=== PATIENT | male | born 1945 | race Caucasian/White ===

== ENCOUNTER 2018-06-14 11:57 | Inpatient (IN) ==
[2018-06-14] MEDS ORDERED: Bisacodyl 10 MG Supp RECTAL PRN (16:22)
--- NOTE | 2018-06-14 17:36 | P.HPVS ---
History of Present Illness Chief Complaint: TAAA History of Present Illness: 73 yo male with TAAA, adm for coumadin reversal (lupus anticoag) in anticipation of TAAA tomorrow (). No abdominal or back pain. TAAA 6 cm, up from 4.7 <1y ago. - Inpatient Certification If this patient has been admitted as an Inpatient: I certify that the inpatient services were ordered in accordance with Medicare regulations governing the order. This includes certification that hospital inpatient services are reasonable and necessary and in the case of services not specified as inpatient-only under 42 CFR 419.22(n), that they are appropriately provided as inpatient services in accordance to with the 2-midnight benchmark under 43 CFR 412.3(e) Estimated Total Length of Stay (Days): 8 Plans for Post Hospital Care: Home Review of Systems Constitutional: Denies chills, Denies fever(s) Cardiovascular: Denies chest pain Respiratory: Denies shortness of breath with activity PMFSH - History History Provided By: Patient, Family Member - Medical History Medical History: Medical History (Last Reviewed 06/14/18 @ 17:34 by Doroteo Goss MD) Dupuytren contracture History of left heart catheterization Lupus anticoagulant positive - Surgical History Surgical History: Surgical History (Last Reviewed 06/14/18 @ 17:34 by Doroteo Goss MD) Cataract extraction status of left eye H/O detached retina repair H/O vitrectomy History of right hip replacement S/P hernia surgery Stented coronary artery - Family History Family History: Family History (Last Updated 06/14/18 @ 17:34 by Doroteo Goss MD) Other AAA (abdominal aortic aneurysm) AAA (abdominal aortic aneurysm) without rupture AAA (abdominal aortic aneurysm, ruptured) - Tobacco History Second Hand Smoke Exposure: No Tobacco Use In Past 30 Days: No Smoking Status: Former smoker - Alcohol History How Often Do You Have a Drink Containing Alcohol: 4 or more times a week - Substance Use History Substance History: No History of Abuse - Immunization History Tetanus Immunization: Unsure Hx Influenza Vaccine This Season: Yes Medications and Allergies Active Medications: Active Medications Al Hydroxide/Mg Hydroxide (Milk Of Magnezequiel Liq) 30 ml PO Q12H PRN PRN Reason: Mild Constipation Bisacodyl (Dulcolax Supp) 10 mg RECTAL DAILY PRN PRN Reason: SEVERE CONSITIPATION Famotidine (Pepcid) 20 mg PO BID AYDE Lactulose (Lactulose Liq) 30 ml PO DAILY PRN PRN Reason: SEVERE CONSITIPATION Senna/Docusate Sodium (Virginie-Colace) 1 tab PO BID AYDE Sennosides (Senokot) 17.2 mg PO Q12H PRN PRN Reason: Moderate Constipation Allergies Allergy/AdvReac Type Severity Reaction Status Date / Time No Known Allergies Allergy Unverified 06/14/18 16:07 Home Medications Medication Instructions Recorded Confirmed Type alfuzosin 10 mg PO HS 06/14/18 06/14/18 History aspirin 81 mg PO DAILY 06/14/18 06/14/18 History atorvastatin [Lipitor] 40 mg PO DAILY 06/14/18 06/14/18 History brimonidine 1 drp OPHTHALMIC (EYE) BID 06/14/18 06/14/18 History cyanocobalamin-cobamamide [B12] 2,500 mcg SUBLINGUAL DAILY 06/14/18 06/14/18 History fluticasone [Flonase Allergy INTRANASAL PRN 06/14/18 History Relief] lisinopril 20 mg PO DAILY 06/14/18 06/14/18 History oxybutynin chloride 10 mg PO HS 06/14/18 06/14/18 History potassium citrate 540 mg PO BID 06/14/18 06/14/18 History warfarin 7.5 mg PO EVERY OTHER DAY 06/14/18 06/14/18 History warfarin See Label Instructions .ROUTE 06/14/18 06/14/18 History .COMPLEX Physical Exam Vital Signs / I&O: Vital Signs 06/14/18 16:16 Pulse Rate 75 Respiratory Rate 16 Blood Pressure 156/72 H Pulse Oximetry 97 Intake & Output 06/13/18 06/14/18 06/14/18 18:59 06:59 18:59 Weight 85.743 kg Other: Date of Last Bowel Movement 06/14/18 Weight On Admission 85.743 kg Neuro: alert, no distress, NAVA HEENT: NC; L eye ptosis Neck: no JVD Heart: reg rate Lungs: clear Abdomen: nontender Vascular: palpable femoral pulses pending CTA reviewed - 6m TAAA Caprini VTE Risk Assessment Caprini VTE Risk Assessment: No/Low Risk (score <= 1) Caprini Risk Assessment Model: Point Value = 1 Point Value = 2 Point Value = 3 Point Value = 5 Age 41-60 Minor surgery BMI > 25 kg/m2 Swollen legs Varicose veins or History of unexplained or recurrent spontaneous Oral contraceptives or hormone replacement Sepsis (< 1 month) Serious lung disease, including pneumonia (< 1 month) Abnormal pulmonary function Acute myocardial infarction Congestive heart failure (< 1 month) History of inflammatory bowel disease Medical patient at bed rest Age 61-74 Arthroscopic surgery Major open surgery (> 45 min) Laparoscopic surgery (> 45 min) Malignancy Confined to bed (> 72 hours) Immobilizing plaster cast Central venous access Age >= 75 History of VTE Family history of VTE Factor V Leiden Prothrombin [id number] Lupus anticoagulant Anticardiolipin antibodies Elevated serum homocysteine Heparin-induced thrombocytopenia Other congenital or acquired thrombophilia Stroke (< 1 month) Elective arthroplasty Hip, pelvis, or leg fracture Acute spinal cord injury (< 1 month) Prophylaxis Regimen: Total Risk Factor Score Risk Level Prophylaxis Regimen 0-1 Low Early ambulation 2 Moderate Order ONE of the following: *Sequential Compression Device (SCD) *Heparin 5000 units SQ BID 3-4 Higher Order ONE of the following medications: *Heparin 5000 units SQ TID *Enoxaparin/Lovenox 40 mg SQ daily (WT < 150 kg, CrCl > 30 mL/min) *Enoxaparin/Lovenox 30 mg SQ daily (WT < 150 kg, CrCl > 10-29 mL/min) *Enoxaparin/Lovenox 30 mg SQ BID (WT < 150 kg, CrCl > 30 mL/min) AND/OR *Sequential Compression Device (SCD) 5 or more Highest Order ONE of the following medications: *Heparin 5000 units SQ TID (Preferred with Epidurals) *Enoxaparin/Lovenox 40 mg SQ daily (WT < 150 kg, CrCl > 30 mL/min) *Enoxaparin/Lovenox 30 mg SQ daily (WT < 150 kg, CrCl > 10-29 mL/min) *Enoxaparin/Lovenox 30 mg SQ BID (WT < 150 kg, CrCl > 30 mL/min) AND *Sequential Compression Device (SCD) Assessment and Plan - Assessment (1) Thoracoabdominal aortic aneurysm (TAAA) without rupture Code(s): I71.6 - Thoracoabdominal aortic aneurysm, without rupture Status: Acute - Plan 1. Check CBC, BMP, INR 2. Vit K and/or FFP to get INR < 1.5 3. NPO after MN 4. Consent signed and on chart; all questions answered 5. To OR 06/15 Discharge Planning: CVICU post-op likely home 7 days
[2018-06-14 18:37] LABS: Hematocrit 38.3 % (39.0-51.0); Hemoglobin 13.5 gm/dL (13.0-17.0); Mean Corpuscular HGB Conc 35.1 % (32.0-36.0); Mean Corpuscular Hemoglobin 35.6 pg (27.0-34.0); Mean Corpuscular Volume 101.3 fL (80.0-100.0); Mean Platelet Volume 6.3 fL (7.0-11.0); Platelet Count 207 th/mm3 (150-450); Red Blood Count 3.78 mil/mm3 (4.50-5.90); Red Cell Distribution Width 14.1 % (11.6-17.2); White Blood Count 5.7 th/mm3 (4.0-11.0)
[2018-06-14 18:51] LABS: Anion Gap 8 meq/L (5-15); Blood Urea Nitrogen 11 mg/dL (7-18); Calcium 9.1 mg/dL (8.5-10.1); Carbon Dioxide 27.9 meq/L (21.0-32.0); Chloride 105 meq/L (98-107); Glomerular Filtration Rate Greater Than 89 mL/min (>89); Glucose,Random 75 mg/dL (74-106); Potassium 3.8 meq/L (3.5-5.1); Sodium 141 meq/L (136-145)
[2018-06-14 18:55] LABS: INR 2.1 Ratio; Prothrombin Time 21.7 sec (9.8-11.6)
[2018-06-14] MEDS ORDERED: Phytonadione Inj 10 MG/ML Vial SQ ONE (20:00)
[2018-06-14] MEDS: Senna/Docusate Sodium 8.6/50 MG Tablet PO SCH (20:18)
[2018-06-14] MEDS: Famotidine 20 MG Tablet PO SCH (20:18)
[2018-06-15 02:29] LABS: INR 1.8 Ratio; Prothrombin Time 18.1 sec (9.8-11.6)
[2018-06-15] MEDS ORDERED: Phytonadione Inj 10 MG/ML Vial SQ ONE (02:45)
[2018-06-15] MEDS ORDERED: Thrombin Topical 20,000 UNIT Spray Kit TOPICAL ONE (07:06)
[2018-06-15] MEDS ORDERED: Protamine Sulfate Inj 50 MG/5 ML Vial ONE (07:06)
[2018-06-15] MEDS ORDERED: Heparin 10,000 UNITS/10 ML Vial (for IV use) ONE (07:06)
[2018-06-15] MEDS ORDERED: Heparin/NS PF Inj 500 ML ONE (07:07)
[2018-06-15] MEDS ORDERED: Heparin - SQ 10,000 UNITS/ML Vial ONE (07:07)
[2018-06-15 07:19] LABS: INR 1.8 Ratio; Prothrombin Time 17.9 sec (9.8-11.6)
[2018-06-15] MEDS ORDERED: Sodium Bicarbonate 8.4% Inj 50 MEQ/50 ML Syringe IV.CONT ONE (08:38)
[2018-06-15] MEDS ORDERED: Calcium Chloride Inj 1 GM/10 ML Syringe IV.CONT ONE (08:38)
[2018-06-15] MEDS ORDERED: Sodium Chlor 0.9% Inj 500 ML IV.CONT ONE (08:38)
[2018-06-15] MEDS ORDERED: Lidocaine PF 1% Inj 5 ML Syringe OTHER ONE (08:38)
[2018-06-15] MEDS ORDERED: Labetalol HCl Inj 100 MG/20 ML Vial IV.CONT ONE (08:38)
[2018-06-15] MEDS ORDERED: Sodium Chlor 0.9% Inj 250 ML IV.CONT ONE (08:38)
[2018-06-15] MEDS ORDERED: Nitroglycerin Drip Premix 50 MG/250 ML BOTTLE IV.CONT ONE (08:38)
[2018-06-15] MEDS: Famotidine 20 MG Tablet PO SCH (10:48)
[2018-06-15] MEDS: Senna/Docusate Sodium 8.6/50 MG Tablet PO SCH (10:48)
[2018-06-15] MEDS ORDERED: fentaNYL Citrate Inj 250 MCG/5 ML Ampul ONE (10:53)
[2018-06-15] MEDS ORDERED: Sugammadex Inj 200 MG/2 ML Vial IV.PUSH ONE (10:54)
[2018-06-15] MEDS ORDERED: Insulin NovoLIN Regular Correctional Sugar Inj ONE (13:33)
[2018-06-15] MEDS ORDERED: Bisacodyl 10 MG Supp RECTAL PRN (13:50)
--- NOTE | 2018-06-15 13:50 | P.OP ---
- Preoperative Diagnosis (1) Thoracoabdominal aortic aneurysm (TAAA) without rupture - Postoperative Diagnosis (1) Thoracoabdominal aortic aneurysm (TAAA) without rupture Date of procedure: 06/15/18 Procedure: 1. Open retroperitoneal TAAA repair (20mm Dacron) 2. L renal artery bypass (6mm Dacron) Implants: 1. 20mm Dacron 2. 6mm Dacron Anesthesia: GETA Surgeon: Doroteo Goss MD Manager Pool: Jose Ramey Estimated blood loss (mL): 2,000 IV fluids (mL): 6,000 Urine output (mL): 700 Pathology: none sent Operation and Findings: 1. 22 min supramesenteric X-clamp 2. + Doppler signals in feet 3. Total IVC: 6000mL x'oid, 2U FFP, 1129 mL cell saver 4. UOP incl 250 after reperfusion
[2018-06-15] MEDS ORDERED: Naloxone Inj 0.4 MG/ML Vial IV.PUSH PRN (13:54)
[2018-06-15] MEDS ORDERED: Clevidipine Inj 25 MG/50 ML VIAL ONE (14:28)
[2018-06-15] MEDS ORDERED: Clevidipine Inj 25 MG/50 ML VIAL IV.CONT PRN (14:32)
[2018-06-15] MEDS ORDERED: Dexmedetomidine Inj 200 MCG in Sodium Chlor 0.9% Inj 48 ML IV.CONT PRN (14:32)
--- NOTE | 2018-06-15 14:38 | P.CON ---
History of Present Illness Service: Critical Care Medicine Consult date: 06/15/18 Requesting Physician: Doroteo Goss Reason for Consult: perioperative management of medical comorbidities Primary Care Provider: UNKNOWN History of Present Illness: This is a 73yM who presents for thoracic open aortic aneurysm repair. He underwent left thoracotomy with laparotomy and supramesenteric cross clamp x 23 minutes. He arrives to the CVICU extubated in stable condition. He has bilateral palpable pulses. he is sedate and arousing from anesthesia. complete ROS is unobtainable due to his somnolence. limited ROS negative for chest pain, SOB, nausea, vomiting, headache, sore throat. he has made 200cc urine in the first hour and chest tubes are dry. Of note, I met and evaluated the patient last night prior to his operation and the remainder of the history was given to me by the patient prior to his elective operation. Review of Systems unobtainable due to mental status (arousing from anesthesia) PMFSH - History History Provided By: Patient, Family Member - Medical History Medical History: Medical History (Last Reviewed 06/15/18 @ 17:28 by Dane Sam MD) DVT (deep venous thrombosis) Dupuytren contracture History of left heart catheterization Kidney stone Lupus anticoagulant positive - Surgical History Surgical History: Surgical History (Last Reviewed 06/15/18 @ 17:28 by Dane Sam MD) Cataract extraction status of left eye H/O detached retina repair H/O vitrectomy History of right hip replacement S/P hernia surgery Stented coronary artery - Family History Family History: Family History (Last Reviewed 06/15/18 @ 17:28 by Dane Sam MD) Other AAA (abdominal aortic aneurysm) AAA (abdominal aortic aneurysm) without rupture AAA (abdominal aortic aneurysm, ruptured) - Social History I have reviewed the patient's Social History: Yes - Tobacco History Second Hand Smoke Exposure: No Tobacco Use In Past 30 Days: No Smoking Status: Former smoker - Alcohol History How Often Do You Have a Drink Containing Alcohol: 4 or more times a week - Substance Use History Substance History: No History of Abuse - Immunization History Tetanus Immunization: Unsure Hx Influenza Vaccine This Season: Yes Medications and Allergies Active Medications: Active Medications Al Hydroxide/Mg Hydroxide (Milk Of Magnesia Liq) 30 ml PO Q12H PRN PRN Reason: Mild Constipation Al Hydroxide/Mg Hydroxide (Milk Of Magnesia Liq) 30 ml PO Q12H PRN PRN Reason: Mild Constipation Aspirin (Aspirin Chew) 81 mg PO DAILY [facility] Bisacodyl (Dulcolax Supp) 10 mg RECTAL DAILY PRN PRN Reason: SEVERE CONSITIPATION Bisacodyl (Dulcolax Supp) 10 mg RECTAL DAILY PRN PRN Reason: SEVERE CONSITIPATION Famotidine (Pepcid) 20 mg PO BID [facility] Last Admin: 06/15/18 10:48 Dose: Not Given Famotidine (Pepcid) 20 mg PO BID [facility] Lactated Ringer's (Lr 1000 Ml Inj) 1,000 mls @ 84 mls/hr IV.CONT .[id number] [facility] Stop: 06/17/18 13:59 Morphine Sulfate (Morphine Inj) 30 mg in 30 mls @ 0 mls/hr TIN ROOFER UNSCH PRN PRN Reason: per TIN ROOFER parameters Clevidipine (Cleviprex Inj) 25 mg in 50 mls @ 2 mls/hr IV.CONT TITRATE PRN; Protocol PRN Reason: Per protocol Dexmedetomidine HCl 200 mcg/ (Sodium Chloride) 50 mls @ 2.14 mls/hr IV.CONT TITRATE PRN; Protocol PRN Reason: Per Protocol Lactulose (Lactulose Liq) 30 ml PO DAILY PRN PRN Reason: SEVERE CONSITIPATION Lactulose (Lactulose Liq) 30 ml PO DAILY PRN PRN Reason: SEVERE CONSITIPATION Naloxone HCl (Narcan Inj) 0.4 mg IV.PUSH PRN PRN PRN Reason: Resp rate < 10 Senna/Docusate Sodium (Virginie-Colace) 1 tab PO BID [facility] Last Admin: 06/15/18 10:48 Dose: Not Given Senna/Docusate Sodium (Virginie-Colace) 1 tab PO BID [facility] Sennosides (Senokot) 17.2 mg PO Q12H PRN PRN Reason: Moderate Constipation Sennosides (Senokot) 17.2 mg PO Q12H PRN PRN Reason: Moderate Constipation Allergies Allergy/AdvReac Type Severity Reaction Status Date / Time No Known Allergies Allergy Unverified 06/14/18 16:07 Home Medications Medication Instructions Recorded Confirmed Type alfuzosin 10 mg PO HS 06/14/18 06/14/18 History aspirin 81 mg PO DAILY 06/14/18 06/14/18 History atorvastatin [Lipitor] 40 mg PO DAILY 06/14/18 06/14/18 History brimonidine 1 drp OPHTHALMIC (EYE) BID 06/14/18 06/14/18 History cyanocobalamin-cobamamide [B12] 2,500 mcg SUBLINGUAL DAILY 06/14/18 06/14/18 History fluticasone [Flonase Allergy INTRANASAL PRN 06/14/18 History Relief] lisinopril 20 mg PO DAILY 06/14/18 06/14/18 History oxybutynin chloride 10 mg PO HS 06/14/18 06/14/18 History potassium citrate 540 mg PO BID 06/14/18 06/14/18 History warfarin 7.5 mg PO EVERY OTHER DAY 06/14/18 06/14/18 History warfarin See Label Instructions .ROUTE 06/14/18 06/14/18 History .COMPLEX Physical Exam Vital signs: Vital Signs 06/14/18 16:00 06/14/18 16:16 06/14/18 17:00 Temperature Pulse Rate 64 75 52 L Respiratory Rate 16 Blood Pressure 156/72 H Pulse Oximetry 97 06/14/18 18:00 06/14/18 19:00 06/14/18 20:00 Temperature 36.7 C Pulse Rate 52 L 54 L 62 Respiratory Rate 16 Blood Pressure 158/71 H Pulse Oximetry 95 06/14/18 21:00 06/14/18 22:00 06/14/18 23:00 Temperature 36.5 C Pulse Rate 50 L 48 L 50 L Respiratory Rate 16 Blood Pressure 152/79 H Pulse Oximetry 96 06/15/18 00:00 06/15/18 01:00 06/15/18 02:00 Temperature Pulse Rate 42 L 48 L 52 L Respiratory Rate Blood Pressure Pulse Oximetry 06/15/18 03:00 06/15/18 04:00 06/15/18 05:00 Temperature 36.4 C L Pulse Rate 49 L 57 L 52 L Respiratory Rate 16 Blood Pressure 150/67 H Pulse Oximetry 95 06/15/18 06:00 06/15/18 07:00 06/15/18 08:10 Temperature 36.7 C 36.7 C Pulse Rate 56 L 54 L 54 L Respiratory Rate 18 18 Blood Pressure 165/79 H 165/79 H Pulse Oximetry 95 95 06/15/18 14:29 Temperature Pulse Rate Respiratory Rate Blood Pressure Pulse Oximetry 97 Intake & Output 06/14/18 06/15/18 06/15/18 18:59 06:59 18:59 Intake Total 240 / 240 240 / 240 7129 / 7129 Output Total 2700 / 2700 Balance 240 / 240 240 / 240 4429 / 4429 Weight 85.743 kg 85.6 kg Intake: IV 0 / 0 Heparin/NS PF Inj 500 ML @ 0 0 / 0 mls/hr .ROUTE .[address] ONE Rx#: [id number] Oral 240 / 240 240 / 240 Anesthesia Amount 6000 / 6000 Intake (Blood Product) Amt 0 / 0 Plasma Thawed 5 Day Cp2d Unit 0 / 0 [id number] Cell Saver Amount 1129 / 1129 Output: Estimated Blood Loss 1999 Urine Amount (Catheter) 700 / 700 Indwelling Temp Sensing 700 / 700 Catheter Other: # Voids 1 Date of Last Bowel Movement 06/14/18 Weight On Admission 85.743 kg Narrative: GENERAL: Elderly male, lying in bed, arousing from anesthesia HEENT: Normocephalic. Atraumatic. Pupils equal, round, reactive, conjugate. Mucous membranes are moist NECK: Trachea is midline. There is no JVD. There is a right IJ triple-lumen catheter site is clean dry and intact. CHEST: There is a left thoracotomy incision with its dressing intact and a left- sided chest tube with minimal sanguinous output. Equal chest rise. Simple facemask oxygen. CARDIOVASCULAR: Normal rate, regular rhythm. Sinus. Blood pressure is 180 systolic. Starting on Clevidipine infusion. ABDOMEN: There is a midline laparotomy dressing in place, clean dry and intact. Soft, mildly tender to palpation, nondistended. No guarding. MUSCULOSKELETAL: Pulses 2+. No peripheral edema. Extremities are warm and well -perfused. NEUROLOGICAL: RASS -2. Arousing from anesthesia. Moves all extremities. Follows commands x4. No lower extremity weakness. - Urinary Catheter Management Indwelling Temp Sensing Catheter Cath placed during this visit: yes Reason for continuing: Hourly intake/output Insertion date: 06/15/18 Insertion time: 08:55 Assessment and Plan - Plan Assessment: 73yM POD 0 s/p open thoracoabdominal aortic aneurysm repair. close uop monitoring, close neurovascular checks. Active Problems: s/p open thoracoabdominal aortic aneurysm repair Hypertension Acute Post-operative pain Anemia secondary to acute blood loss Coumadin Coagulopathy Lupus anticoagulant positive Plan: - admit to ICU - frequent neurovascular checks - aggressive incentive spirometry - close chest tube monitoring - close uop monitoring - mivf - trend lactates - daily bmp, mg, phos - daily coags - daily cbc - does not meet transfusion triggers at this time - anticoagulation plan per Dr. Goss - OOB to chair after flat time - OG to LIWS: ileus anticipated. - SCDs Critical care will continue to follow along while patient remains in the CVICU.
[2018-06-15 14:47] LABS: Hematocrit 31.7 % (39.0-51.0); Hemoglobin 11.3 gm/dL (13.0-17.0); Mean Corpuscular HGB Conc 35.7 % (32.0-36.0); Mean Corpuscular Hemoglobin 36.3 pg (27.0-34.0); Mean Corpuscular Volume 101.7 fL (80.0-100.0); Mean Platelet Volume 6.3 fL (7.0-11.0); Platelet Count 132 th/mm3 (150-450); Red Blood Count 3.12 mil/mm3 (4.50-5.90); Red Cell Distribution Width 13.9 % (11.6-17.2); White Blood Count 9.1 th/mm3 (4.0-11.0)
[2018-06-15 14:58] LABS: Activated Partial Thrombo Time 25.3 sec (24.3-30.1); INR 1.4 Ratio; Prothrombin Time 14.6 sec (9.8-11.6)
[2018-06-15] MEDS: Morphine Inj 30 MG/30 ML PCA.VIAL PCA PRN (14:58)
--- NOTE | 2018-06-15 15:05 | XR ---
EXAM DATE: 06/15/2018 12:00 AM EDT AGE/SEX: 73 years / Male INDICATIONS: TAAA CLINICAL DATA: This is the patient's initial encounter. Patient reports that signs and symptoms have been present for 1 day and indicates a pain score of Nonresponsive. MEDICAL/SURGICAL HISTORY: Non-responsive. Non-responsive. COMPARISON: No prior exams available for comparison. FINDINGS: Left-sided chest tube is noted in good position. A nasogastric tube has its tip below diaphragm in th e stomach. Right internal jugular central line has tip in superior vena cava. No pneumothorax is note d. The heart is normal. The pulmonary vascular pattern is normal. The lungs are relatively clear. CONCLUSION: 1. No focal infiltrate or pulmonary vascular congestion. 2. No pneumothorax is noted. Electronically signed by: Doroteo Becker MD 06/15/2018 3:04 PM EDT
[2018-06-15 15:22] LABS: Calcium 7.7 mg/dL (8.5-10.1); Carbon Dioxide 28.7 meq/L (21.0-32.0); Potassium 3.7 meq/L (3.5-5.1)
--- NOTE | 2018-06-15 15:27 | ECG ---
Date Performed: 06/15/2018 Time Performed: 08:30:24 PTAGE: 73 years EKG: Sinus rhythm Normal ECG NO PREVIOUS TRACING DOCTOR: Moni Espinoza Interpretating Date/Time 06/15/2018 15:24:44
[2018-06-15] MEDS ORDERED: Calcium Chloride Inj 1 GM in Dextrose 5% in Water Inj 100 ML IV.SIG ONE ×2 (17:00)
--- NOTE | 2018-06-15 17:52 | MP ---
cc: Doroteo Goss MD DATE OF OPERATION: 06/15/2018 PREOPERATIVE DIAGNOSIS: Thoracoabdominal aneurysm. POSTOPERATIVE DIAGNOSES: Thoracoabdominal aneurysm. PROCEDURE PERFORMED: 1. Open retroperitoneal repair of a thoracoabdominal aortic aneurysm with a supermesenteric crossclamp (22 minutes). 2. Left renal artery bypass. ATTENDING SURGEON: Doroteo Goss MD. SHINGLE GRADER SURGEON: Jose Ramey MD SHINGLE GRADER SURGEON: Ty Richards. ANESTHESIA: General. INDICATIONS FOR PROCEDURE: Mike Mccoy is a 73-year-old gentleman with thoracoabdominal aortic aneurysm. He was taken to the operating room for elective repair. DESCRIPTION OF PROCEDURE: Informed consent was obtained. The patient was taken to the operating room and placed supine on the operating table. An appropriate timeout was taken to ensure the patient's identity, operative site and planned procedure. The administration of 2 grams of Ancef was initiated prior to skin incision and will be discontinued after a single preoperative dose. Everyone in the room agreed with timeout and we proceeded. He was placed in the thoracoabdominal position with the right side of his chest down. All pressure points were carefully padded and his chest, abdomen, hips, knees, and thighs were all prepped and draped. A thoracoabdominal incision was made and the 9th rib interspace was encountered. The muscle was divided. The peritoneum was swept medially and a Bookwalter retractor was set up. The attachments to the diaphragm were taken down. The diaphragm was incised, thereby providing more cephalad retraction and we dissected all the way down to the aorta. The ureter was kept medial the entire time. We dissected down to identify the renal vein, the left renal artery, which was circumferentially dissected and the supermesenteric aorta along with the SMA. The SMA was circumferentially dissected and a vessel loop was placed around this as well as the left renal artery. We then dissected down to the aortic bifurcation. enough to place a clamp on it. At this point, the patient was systemically heparinized and also given 12.5 grams of mannitol. Distal control of the terminal aorta was obtained with a DeBakey aortic clamp and proximal control of the supermesenteric aorta was obtained with the Zenger clamp. The SMA was controlled by Wakefield tying the vessel loop. The left renal artery was clamped out distally with an adult profunda clamp. Once all clamps were applied, the left renal artery was transected at its base and the aorta was opened up with electrocautery. Lumbar branches were oversewn with a Prolene suture. We then incised the aortic sac up to a sewing ring, which encompassed the right renal artery and SMA. The aorta was transected at this level. A 20 mm Dacron was brought up onto the field and a 6 mm Dacron limb had been sewn onto it prior to clamping the aorta. The proximal end of the 20 mm Dacron was spatulated and sewn end-to-end to the aorta with running 3-0 Prolene suture. At the completion, it was flushed and clamps were placed on both the 6 mm limb as well as the distal 20 mm graft. The repair sutures were made with 4-0 pledgeted Prolene. There was a nice Doppler signal in the SMA and the blood pressure transiently dropped with release of this clamp. Total mesenteric ischemia time was 22 minutes. A Omari softjaw was placed on the distal aortic graft and a profunda clamp was placed on the proximal aspect of the 6 mm graft. The renal artery was transected further distally, spatulated, and the 6 mm graft was sewn end-to-end with running 6-0 Prolene suture. At the completion, it was flushed and hemostatic. The clamps were released and there was a nice pulse in the distal renal artery. The aorta was then transected down towards the terminal aortic bifurcation and the graft was similarly transected and sewn end-to-end with running 3-0 Prolene suture. At the completion, it was flushed and noted to be hemostatic. The clamps were released in conjunction with our anesthesia colleagues and sequentially the pelvis and lower extremities were reperfused. There was a nice pulse in the left renal artery. A Doppler signal and a pulse in the SMA and pulses in both feet. The heparin was reversed with protamine. The wound was made hemostatic with spray thrombin and Surgicel as well as electrocautery. The diaphragm was reapproximated with a 2-0 Prolene suture. The ribs were reapproximated with #2 Polysorb. A 26-Vietnamese chest tube was placed through a separate stab wound and secured to the skin with a 0 nylon. The fascia was then closed with running 0 looped Maxon and the skin was closed with 2-0 Polysorb and 4-0 Monocryl. The sponge and needle counts were correct at the end of the case. I was present, scrubbed, and performed the entire procedure. At the conclusion of the case, the patient was extubated and transported to the ICU in critical condition. MD LAWANDA Ayala/nancy , 04:24 PM , 04:33 PM VONNIE
[2018-06-16 04:49] LABS: Hematocrit 34.2 % (39.0-51.0); Hemoglobin 11.9 gm/dL (13.0-17.0); Mean Corpuscular HGB Conc 34.9 % (32.0-36.0); Mean Corpuscular Hemoglobin 35.8 pg (27.0-34.0); Mean Corpuscular Volume 102.7 fL (80.0-100.0); Platelet Count 140 th/mm3 (150-450); Red Blood Count 3.33 mil/mm3 (4.50-5.90); Red Cell Distribution Width 14.5 % (11.6-17.2); White Blood Count 9.3 th/mm3 (4.0-11.0)
[2018-06-16 05:01] LABS: Activated Partial Thrombo Time 25.6 sec (24.3-30.1); INR 1.1 Ratio; Prothrombin Time 11.6 sec (9.8-11.6)
[2018-06-16 05:13] LABS: Calcium 8.3 mg/dL (8.5-10.1); Carbon Dioxide 31.4 meq/L (21.0-32.0); Magnesium 1.6 mg/dL (1.5-2.5); Potassium 4.4 meq/L (3.5-5.1)
[2018-06-16 05:14] LABS: Phosphorus 3.8 mg/dL (2.5-4.9)
[2018-06-16] MEDS ORDERED: Albumin Human 5% Inj 500 ML IV.SIG STA (08:18)
[2018-06-16] MEDS ORDERED: Albumin Human 5% Inj 250 ML IV.SIG ONE (08:19)
--- NOTE | 2018-06-16 08:34 | P.PNCC ---
Subjective Subjective Remarks/Hospital Course: Hospital Course: This is a 73yM who presents for thoracic open aortic aneurysm repair. He underwent left thoracotomy with laparotomy and supramesenteric cross clamp x 23 minutes. He arrives to the CVICU extubated in stable condition. He has bilateral palpable pulses. he is sedate and arousing from anesthesia. complete ROS is unobtainable due to his somnolence. limited ROS negative for chest pain, SOB, nausea, vomiting, headache, sore throat. he has made 200cc urine in the first hour and chest tubes are dry. Of note, I met and evaluated the patient last night prior to his operation and the remainder of the history was given to me by the patient prior to his elective operation. Subjective: 06/16: pain adequately controlled. uop dropped off overnight, but remains > 40cc/ hr. borderline hypotensive this morning. chest tube with minimal serosanguinous output this morning. patient taught to use I.S. at bedside this morning: can pull 750cc. encouraged use. Objective Vital Signs / I&O: Vital Signs 06/15/18 14:29 06/15/18 15:00 06/15/18 16:13 Temperature 35.6 C L Pulse Rate 89 Respiratory Rate 18 18 Blood Pressure 160/76 H Pulse Oximetry 97 97 06/15/18 19:00 06/15/18 20:00 06/15/18 20:10 Temperature 36.3 C L Pulse Rate 76 76 Respiratory Rate 18 Blood Pressure 118/65 Pulse Oximetry 99 98 98 06/15/18 23:00 06/16/18 03:00 06/16/18 07:00 Temperature 36.4 C L 36.0 C L 36.6 C Pulse Rate 78 83 83 Respiratory Rate 18 20 18 Blood Pressure 111/64 107/56 L 102/57 L Pulse Oximetry 99 98 99 06/16/18 08:00 Temperature Pulse Rate Respiratory Rate Blood Pressure Pulse Oximetry 98 Intake & Output 06/15/18 06/16/18 06/16/18 18:59 06:59 18:59 Intake Total 7239 / 7239 Output Total 3420 / 3420 950 / 950 Balance 3819 / 3819 -950 / -950 Weight 91.5 kg Intake: IV 110 / 110 Heparin/NS PF Inj 500 ML @ 0 0 / 0 mls/hr .ROUTE .Kast-MED ONE Rx#: [id number] Calcium Chloride Inj 1 GM In 110 / 110 D5W Inj 100 ML @ 110 mls/hr IV. SIG ONCE ONE Rx#:[id number] Anesthesia Amount 6000 / 6000 Intake (Blood Product) Amt 0 / 0 Plasma Thawed 5 Day Cp2d Unit 0 / 0 [id number] Cell Saver Amount 1129 / 1129 Output: Estimated Blood Loss 2000 / 2000 Urine Amount (Catheter) 1350 / 1350 520 / 520 Indwelling Temp Sensing 1350 / 1350 520 / 520 Catheter Chest Tube Drainage 70 / 70 430 / 430 Left 70 / 70 430 / 430 Other: Date of Last Bowel Movement 06/14/18 06/14/18 Result Diagrams: 06/16/18 04:40 06/16/18 04:40 Objective Remarks: GENERAL: Elderly male, sitting in bed, no acute distress. HEENT: Normocephalic. Atraumatic. Pupils equal, round, reactive, conjugate. Mucous membranes are moist NECK: Trachea is midline. There is no JVD. Right IJ triple-lumen catheter in place, site clean dry and intact. CHEST: Nasal cannula oxygen. Equal chest rise. Incentive spirometer use 750 mL 's. Left chest tube in place with minimal serosanguineous output, still with suction, no air leak. CARDIOVASCULAR: Normal rate, regular rhythm. Sinus. Mean arterial pressure 69 mmHg on my evaluation. CVP 3. ABDOMEN: Soft, minimally and appropriately tender to palpation, nondistended. No guarding. Abdominal binder in place MUSCULOSKELETAL: Pulses 2+. No peripheral edema. NEUROLOGICAL: RASS 0. CAM -. Follows commands. No focal deficits. Assessment and Plan - Assessment and Plan Plan: Assessment: 73yM POD 1 s/p open thoracoabdominal aortic aneurysm repair. close uop monitoring, close neurovascular checks. keep in ICU today. Active Problems: s/p open thoracoabdominal aortic aneurysm repair Hypertension Acute Post-operative pain Anemia secondary to acute blood loss Coumadin Coagulopathy Lupus anticoagulant positive Plan: - remain in ICU today. - continue to watch uop and neurovascular checks - keep gunn at least 1 more day while borderline oliguric - 500cc 5% albumin iv x 1. - increase LR fluid rate to 120 cc/hr today - keep art line and central line today. - water seal chest tube - keep NGT today and NPO. few ice chips for comfort. - daily bmp, mg, phos - daily coags - daily cbc - anticoagulation plan per Dr. Goss - OOB to chair - OG to LIWS: ileus anticipated. - SCDs Critical care will continue to follow along while patient remains in the CVICU.
--- NOTE | 2018-06-16 08:56 | P.PNVS ---
Subjective Post Op Day #: 1 Procedure: TAAA and LEFT renal artery bypass Subjective/Hospital Course: Overall, looks great. C/o hip soreness (same with pre-op). Incisional pain ok no SOB Neuro intact Objective Neuro: NAVA, pain controlled Pulmonary: good sats on NC O2. CT 430 since OR. CXR post-op ok without PTX Cardiac: reg rate, BP ok FEN/GI: no flatus abdomen soft : UOP trending down slightly cr ok, stable from post-op ID Antibiotics (date/duration): none except pre-op Heme: Hct stable Vascular: feet pink, perfused Drains: CT, NGT Laboratory Results - last 24 hr 06/14/18 06/15/18 06/15/18 18:00 06:17 06:25 WBC RBC Hgb Hct MCV MCH MCHC RDW Plt Count MPV PT INR APTT Fibrinogen Sodium Potassium Chloride Carbon Dioxide Anion Gap BUN Creatinine Estimated GFR Random Glucose Calcium Phosphorus Magnesium Blood Type A Positive Blood Type Recheck Required Antibody Screen Negative MTS Gel Crossmatch See Detail See Detail Blood Bank Comment Bld Prod Order Comment 06/15/18 06/15/18 06/15/18 07:24 14:30 14:30 WBC 9.1 D RBC 3.12 L Hgb 11.3 L D Hct 31.7 L MCV 101.7 H MCH 36.3 H MCHC 35.7 RDW 13.9 Plt Count 132 L D MPV 6.3 L PT 14.6 H INR 1.4 APTT 25.3 Fibrinogen 175 L Sodium Potassium Chloride Carbon Dioxide Anion Gap BUN Creatinine Estimated GFR Random Glucose Calcium Phosphorus Magnesium Blood Type Blood Type Recheck Antibody Screen MTS Gel Crossmatch Blood Bank Comment Bld Prod Order Comment 06/15/18 06/16/18 06/16/18 14:30 04:40 04:40 WBC 9.3 RBC 3.33 L Hgb 11.9 L Hct 34.2 L MCV 102.7 H MCH 35.8 H MCHC 34.9 RDW 14.5 Plt Count 140 L MPV 6.0 L PT 11.6 INR 1.1 APTT 25.6 Fibrinogen Sodium 142 Potassium 3.7 Chloride 103 Carbon Dioxide 28.7 Anion Gap 10 BUN 11 Creatinine 1.13 Estimated GFR 63 L Random Glucose 188 H D Calcium 7.7 L D Phosphorus Magnesium Blood Type Blood Type Recheck Antibody Screen MTS Gel Crossmatch Blood Bank Comment Bld Prod Order Comment 06/16/18 04:40 WBC RBC Hgb Hct MCV MCH MCHC RDW Plt Count MPV PT INR APTT Fibrinogen Sodium 141 Potassium 4.4 Chloride 103 Carbon Dioxide 31.4 Anion Gap 7 BUN 16 Creatinine 1.14 Estimated GFR 63 L Random Glucose 137 H Calcium 8.3 L Phosphorus 3.8 Magnesium 1.6 Blood Type Blood Type Recheck Antibody Screen [employer] Gel Crossmatch Blood Bank Comment Bld Prod Order Comment Impressions Chest X-Ray 06/15/18 00:00 CONCLUSION: 1. No focal infiltrate or pulmonary vascular congestion. 2. No pneumothorax is noted. Assessment and Plan - Assessment (1) Thoracoabdominal aortic aneurysm (TAAA) without rupture Code(s): I71.6 - Thoracoabdominal aortic aneurysm, without rupture Status: Acute - Plan POD#1 s/p TAAA and L renal artery bypass 1. AROBF; leave NGT to LCWS 2. OOB TC 3. Leave CT to suction 4. IVF bolus per ICU team 5. Recheck labs tomorrow Discharge Planning: CVICU until tomorrow (POD#2) at earliest
[2018-06-16] MEDS: Famotidine 20 MG Tablet PO SCH ×6 (11:39→22:12)
[2018-06-16] MEDS: Brimonidine 0.2% Opth Drops 5 ML Bottle LEFT EYE SCH ×3 (11:39→22:08)
[2018-06-16] MEDS: Senna/Docusate Sodium 8.6/50 MG Tablet PO SCH ×6 (11:40→22:12)
[2018-06-16] MEDS: Morphine Inj 30 MG/30 ML PCA.VIAL PCA PRN (13:07)
[2018-06-17 05:06] LABS: Hematocrit 30.8 % (39.0-51.0); Hemoglobin 10.7 gm/dL (13.0-17.0); Mean Corpuscular HGB Conc 34.6 % (32.0-36.0); Mean Corpuscular Volume 104.1 fL (80.0-100.0); Mean Platelet Volume 6.6 fL (7.0-11.0); Platelet Count 126 th/mm3 (150-450); Red Blood Count 2.96 mil/mm3 (4.50-5.90); Red Cell Distribution Width 14.5 % (11.6-17.2); White Blood Count 10.1 th/mm3 (4.0-11.0)
[2018-06-17 05:27] LABS: Activated Partial Thrombo Time 27.1 sec (24.3-30.1); Prothrombin Time 10.3 sec (9.8-11.6)
[2018-06-17 05:42] LABS: Calcium 8.3 mg/dL (8.5-10.1); Carbon Dioxide 32.1 meq/L (21.0-32.0); Magnesium 1.7 mg/dL (1.5-2.5)
[2018-06-17 05:43] LABS: Phosphorus 1.5 mg/dL (2.5-4.9)
[2018-06-17] MEDS ORDERED: Sodium Chloride 0.9% 2 ML Flush PRN IV.FLUSH (06:13)
--- NOTE | 2018-06-17 07:45 | P.PNCC ---
Subjective Subjective Remarks/Hospital Course: Hospital Course: This is a 73yM who presents for thoracic open aortic aneurysm repair. He underwent left thoracotomy with laparotomy and supramesenteric cross clamp x 23 minutes. He arrives to the CVICU extubated in stable condition. He has bilateral palpable pulses. he is sedate and arousing from anesthesia. complete ROS is unobtainable due to his somnolence. limited ROS negative for chest pain, SOB, nausea, vomiting, headache, sore throat. he has made 200cc urine in the first hour and chest tubes are dry. Of note, I met and evaluated the patient last night prior to his operation and the remainder of the history was given to me by the patient prior to his elective operation. Subjective: 06/16: pain adequately controlled. uop dropped off overnight, but remains > 40cc/ hr. borderline hypotensive this morning. chest tube with minimal serosanguinous output this morning. patient taught to use I.S. at bedside this morning: can pull 750cc. encouraged use. 06/17: blood pressure improved throughout the day yesterday. uop improved. pain adequately controlled. doing well this AM. chest tube more serous. art line discontinued. Objective Vital Signs / I&O: Vital Signs 06/16/18 08:00 06/16/18 09:48 06/16/18 11:00 Temperature 36.8 C Pulse Rate 82 Respiratory Rate 18 Blood Pressure 115/47 L Pulse Oximetry 98 98 97 06/16/18 13:33 06/16/18 15:00 06/16/18 19:00 Temperature 37.0 C 37.3 C Pulse Rate 100 H 98 H Respiratory Rate 17 20 22 Blood Pressure 141/72 H 100/49 L Pulse Oximetry 98 97 06/16/18 20:00 06/16/18 20:35 06/16/18 23:00 Temperature 37.3 C Pulse Rate 99 H Respiratory Rate 20 Blood Pressure 122/64 Pulse Oximetry 98 94 L 06/17/18 03:00 06/17/18 07:35 Temperature 37.0 C Pulse Rate 86 Respiratory Rate Blood Pressure 175/90 H Pulse Oximetry 98 Intake & Output 06/16/18 06/17/18 06/17/18 18:59 06:59 18:59 Intake Total 2850 / 2850 4683 / 4683 Output Total 785 / 785 1075 / 1075 Balance 2065 / 2065 3608 / 3608 Weight 91 kg Intake: IV 2800 / 2800 4633 / 4633 Cleviprex Inj 25 mg In 50 ml @ 50 / 50 1 MG/HR 2 mls/hr IV.CONT TITRATE PRN Rx#:[id number] LR 1000 mL Inj 1,000 ML @ 120 1000 / 1000 4633 / 4633 mls/hr IV.CONT .Q8H20M AYDE Rx#: [id number] Buminate 5% Inj 250 ML @ 0 mls/ 250 / 250 hr IV.SIG .STK-MED ONE Rx#: [id number] Alburx 5% Inj 500 ML @ 250 mls/ 500 / 500 hr IV.SIG STAT STA Rx#:[id number] LR 1000 mL Inj 1,000 ML @ Wide 1000 / 1000 Open IV.SIG BOLUS ONE Rx#: [id number] Oral 50 / 50 50 / 50 Output: Urine Amount (Catheter) 575 / 575 755 / 755 Indwelling Temp Sensing 575 / 575 755 / 755 Catheter Gastric Drainage 100 / 100 Nasogastric Tube 100 / 100 Chest Tube Drainage 210 / 210 220 / 220 Left 210 / 210 220 / 220 Other: Date of Last Bowel Movement 06/14/18 06/14/18 Result Diagrams: 06/17/18 04:35 06/17/18 04:35 Objective Remarks: GENERAL: Elderly male, sitting in bed, no acute distress. HEENT: Normocephalic. Atraumatic. Pupils equal, round, reactive, conjugate. Mucous membranes are moist NECK: Trachea is midline. There is no JVD. Right IJ triple-lumen catheter in place, site clean dry and intact. CHEST: Nasal cannula oxygen. Equal chest rise. Left chest tube in place with minimal serous output, still with suction, no air leak. CARDIOVASCULAR: Normal rate, regular rhythm. Sinus. ABDOMEN: Soft, minimally and appropriately tender to palpation, nondistended. No guarding. Abdominal binder in place MUSCULOSKELETAL: Pulses 2+. No peripheral edema. NEUROLOGICAL: RASS 0. CAM -. Follows commands. No focal deficits. Assessment and Plan - Assessment and Plan Plan: Assessment: 73yM POD 2 s/p open thoracoabdominal aortic aneurysm repair. Active Problems: s/p open thoracoabdominal aortic aneurysm repair 06/15 Hypertension Acute Post-operative pain Anemia secondary to acute blood loss Coumadin Coagulopathy Lupus anticoagulant positive Insomnia Chronic urinary retention/BPH Plan: - remain in ICU today. - d/c art line - from my standpoint, ok to d/c NGT today: may have a few more days before ROBF. - ok from my standpoint to put chest tube to water seal - need aggressive day/night re-orientation. will add melatonin tonight for sleep - restart home BPH med. would recommend waiting additional 24-48h to pull gunn catheter until BPH med has time to work to minimize risk of urinary retention. - restart home statin. - decrease LR fluid rate back to 84 cc/hr - keep central line today. - NPO with ice chips for comfort. no flatus or ROBF yet. - daily bmp, mg, phos - daily coags - daily cbc - will need anticoagulation. will discuss with Dr. Goss: I am ok with low- dose heparin drip today, transitioning to full dose heparin drip tomorrow, and transitioning back to coumadin starting Tuesday. - OOB to chair - SCDs Critical care will continue to follow along while patient remains in the CVICU.
--- NOTE | 2018-06-17 09:23 | P.PNVS ---
Subjective Post Op Day #: 2 Procedure: TAAA and LEFT renal artery bypass Subjective/Hospital Course: looks good occasionally disoriented and anxious but no distress and easily re-oriented. a-line out yesterday Objective Neuro: NAVA; answers appropriately; seems intermittently agitated Pulmonary: CT with serous drainage; good sats NC Cardiac: tachy 100-120; bp good FEN/GI: NGT scant output abdomen soft e-lytes ok - needs Mag and phos : UOP decent creatinine ok ID Antibiotics (date/duration): none Heme: Hct 30 plt 136 Laboratory Results - last 24 hr 06/14/18 06/15/18 06/15/18 18:00 06:17 06:25 WBC RBC Hgb Hct MCV MCH MCHC RDW Plt Count MPV PT INR APTT Sodium Potassium Chloride Carbon Dioxide Anion Gap BUN Creatinine Estimated GFR Random Glucose Calcium Phosphorus Magnesium Blood Type A Positive Blood Type Recheck Required Antibody Screen Negative MTS Gel Crossmatch See Detail See Detail Blood Bank Comment 06/15/18 06/17/18 06/17/18 07:24 04:35 04:35 WBC 10.1 RBC 2.96 L Hgb 10.7 L Hct 30.8 L MCV 104.1 H MCH 36.0 H MCHC 34.6 RDW 14.5 Plt Count 126 L MPV 6.6 L PT 10.3 INR 1.0 APTT 27.1 Sodium Potassium Chloride Carbon Dioxide Anion Gap BUN Creatinine Estimated GFR Random Glucose Calcium Phosphorus Magnesium Blood Type Blood Type Recheck Antibody Screen MTS Gel Crossmatch Blood Bank Comment 06/17/18 04:35 WBC RBC Hgb Hct MCV MCH MCHC RDW Plt Count MPV PT INR APTT Sodium 142 Potassium 4.0 Chloride 104 Carbon Dioxide 32.1 H Anion Gap 6 BUN 16 Creatinine 0.87 Estimated GFR 86 L Random Glucose 115 H Calcium 8.3 L Phosphorus 1.5 L D Magnesium 1.7 Blood Type Blood Type Recheck Antibody Screen MTS Gel Crossmatch Blood Bank Comment Impressions Chest X-Ray 06/15/18 00:00 CONCLUSION: 1. No focal infiltrate or pulmonary vascular congestion. 2. No pneumothorax is noted. Assessment and Plan - Assessment (1) Thoracoabdominal aortic aneurysm (TAAA) without rupture Code(s): I71.6 - Thoracoabdominal aortic aneurysm, without rupture Status: Acute - Plan POD#2 s/p TAAA and L renal artery bypass 1. D/C NGT; NPO and AROBF; 2. OOB TC and ok to ambulate in CVICU 3. Leave CT to suction 4. Dec MIVF only to 84/h 5. Replete e'lytes (Mg, Phos) 6. Alba to stay in for UOP monitoring 7. Hold resumption of anticoagulation for now 8. if HR persists >100, ok to give low dose beta sam D/W Dr. Sam. Discharge Planning: CVICU for now
[2018-06-17] MEDS ORDERED: Magnesium Sulfate Inj 2 GM in Sodium Chlor 0.9% Inj 96 ML IV.SIG PRN (09:39)
[2018-06-17] MEDS ORDERED: Potassium Phosphate 500 MG Soluble Tablet PO PRN ×2 (09:39)
[2018-06-17] MEDS ORDERED: Potassium Chlor 40 mEq Premix 40 MEQ/100 ML PIGGYBACK IV.SIG PRN ×2 (09:39)
[2018-06-17] MEDS ORDERED: Magnesium Sulfate Inj 4 GM in Sodium Chlor 0.9% Inj 92 ML IV.SIG PRN (09:39)
[2018-06-17] MEDS ORDERED: Potassium Chlor 20 mEq Premix 20 MEQ/100 ML PIGGYBACK IV.SIG PRN ×2 (09:39)
[2018-06-17] MEDS ORDERED: Magnesium Oxide 400 MG Tablet PO PRN (09:39)
[2018-06-17] MEDS ORDERED: Potassium Phosphate Inj 30 MMOL in Sodium Chlor 0.9% Inj 250 ML IV.SIG PRN (09:39)
[2018-06-17] MEDS ORDERED: Potassium Chloride 25 MEQ Effervescent Tablet PO PRN (09:39)
[2018-06-17] MEDS: Famotidine 20 MG Tablet PO SCH ×2 (11:45→21:55)
[2018-06-17] MEDS: Senna/Docusate Sodium 8.6/50 MG Tablet PO SCH ×2 (11:45→21:55)
[2018-06-17] MEDS: Sodium Chloride 0.9% 2 ML Flush BID IV.FLUSH SCH ×2 (11:46→21:59)
[2018-06-17] MEDS: Brimonidine 0.2% Opth Drops 5 ML Bottle EACH EYE SCH ×2 (11:46→21:58)
[2018-06-17] MEDS: Morphine Inj 30 MG/30 ML PCA.VIAL PCA PRN (11:52)
[2018-06-17] MEDS: Sodium Phosphate Inj 30 MMOL in Sodium Chlor 0.9% Inj 250 ML IV.SIG PRN (12:35)
[2018-06-17 16:37] LABS: Hematocrit 22.7 % (39.0-51.0); Hemoglobin 7.9 gm/dL (13.0-17.0)
[2018-06-17] MEDS ORDERED: Amiodarone Inj 150 MG in Dextrose 5% in Water Inj 97 ML IV.SIG ONE ×2 (19:02)
[2018-06-17 23:29] LABS: Hemoglobin 8.2 gm/dL (13.0-17.0)
[2018-06-18] MEDS ORDERED: Amiodarone Inj 150 MG in Dextrose 5% in Water Inj 97 ML IV.SIG ONE ×2 (01:12)
[2018-06-18] MEDS: Dexmedetomidine Inj 200 MCG in Sodium Chlor 0.9% Inj 48 ML IV.CONT PRN ×4 (01:34→21:13)
[2018-06-18 05:13] LABS: Hemoglobin 7.2 gm/dL (13.0-17.0); Mean Corpuscular HGB Conc 35.2 % (32.0-36.0); Mean Corpuscular Hemoglobin 35.3 pg (27.0-34.0); Mean Corpuscular Volume 100.2 fL (80.0-100.0); Mean Platelet Volume 7.4 fL (7.0-11.0); Platelet Count 125 th/mm3 (150-450); Red Blood Count 2.03 mil/mm3 (4.50-5.90); Red Cell Distribution Width 15.2 % (11.6-17.2); White Blood Count 8.4 th/mm3 (4.0-11.0)
[2018-06-18 05:26] LABS: Activated Partial Thrombo Time 27.8 sec (24.3-30.1); Prothrombin Time 10.6 sec (9.8-11.6)
[2018-06-18 05:29] LABS: Hematocrit 20.3 % (39.0-51.0)
[2018-06-18 05:42] LABS: Carbon Dioxide 30.2 meq/L (21.0-32.0); Magnesium 1.7 mg/dL (1.5-2.5); Potassium 3.9 meq/L (3.5-5.1)
[2018-06-18 05:43] LABS: Phosphorus 1.6 mg/dL (2.5-4.9)
--- NOTE | 2018-06-18 06:42 | P.PNCC ---
Subjective Subjective Remarks/Hospital Course: Hospital Course: This is a 73yM who presents for thoracic open aortic aneurysm repair. He underwent left thoracotomy with laparotomy and supramesenteric cross clamp x 23 minutes. He arrives to the CVICU extubated in stable condition. He has bilateral palpable pulses. he is sedate and arousing from anesthesia. complete ROS is unobtainable due to his somnolence. limited ROS negative for chest pain, SOB, nausea, vomiting, headache, sore throat. he has made 200cc urine in the first hour and chest tubes are dry. Of note, I met and evaluated the patient last night prior to his operation and the remainder of the history was given to me by the patient prior to his elective operation. Subjective: 06/16: pain adequately controlled. uop dropped off overnight, but remains > 40cc/ hr. borderline hypotensive this morning. chest tube with minimal serosanguinous output this morning. patient taught to use I.S. at bedside this morning: can pull 750cc. encouraged use. 06/17: blood pressure improved throughout the day yesterday. uop improved. pain adequately controlled. doing well this AM. chest tube more serous. art line discontinued. 06/18: delirious today. went into afib RVR overnight. today persistently anemic- transfusing 2 units prbc. Objective Vital Signs / I&O: Vital Signs 06/17/18 07:00 06/17/18 07:35 06/17/18 08:00 Temperature 37.1 C Pulse Rate 100 H Respiratory Rate 20 Blood Pressure 131/71 Pulse Oximetry 98 98 98 06/17/18 11:00 06/17/18 15:00 06/17/18 19:29 Temperature 36.4 C L 36.6 C 36.8 C Pulse Rate 125 H 104 H 172 H Respiratory Rate 20 20 24 Blood Pressure 122/67 106/60 83/62 L Pulse Oximetry 95 06/17/18 19:45 06/17/18 20:00 06/17/18 22:00 Temperature 36.8 C 36.9 C Pulse Rate 151 H 155 H Respiratory Rate 22 20 Blood Pressure 98/50 L 125/62 Pulse Oximetry 97 98 97 06/18/18 00:00 06/18/18 04:00 Temperature 36.9 C 36.9 C Pulse Rate 136 H 134 H Respiratory Rate 18 20 Blood Pressure 113/56 L 92/56 L Pulse Oximetry 98 98 Intake & Output 06/17/18 06/17/18 06/18/18 06:59 18:59 06:59 Intake Total 4683 / 4683 100 / 100 2160 / 2160 Output Total 1075 / 1075 815 / 815 Balance 3608 / 3608 -715 / -715 2160 / 2160 Weight 91 kg Intake: IV 4633 / 4633 100 / 100 1760 / 1760 Cordarone Inj 450 MG In D5W Inj 250 / 250 241 ML @ 1 MG/MIN 33.33 mls/hr IV.CONT TITRATE PRN Rx#: [id number] Precedex Inj 200 MCG In NS Inj 50 / 50 48 ML @ 0.2 MCG/KG/HR 4.55 mls/ hr IV.CONT TITRATE PRN Rx#: [id number] LR 1000 mL Inj 1,000 ML @ 120 4633 / 4633 mls/hr IV.CONT .Q8H20M AYDE Rx#: [id number] Ofirmev Inj 1,000 mg In 100 ml 100 / 100 100 / 100 @ 300 mls/hr IV.SIG Q6H AYDE Rx# :[id number] Cordarone Inj 150 MG In D5W Inj 100 / 100 97 ML @ 600 mls/hr IV.SIG ONCE ONE Rx#:[id number] LR 1000 mL Inj 1,000 ML @ 999 1000 / 1000 mls/hr IV.SIG .Q1H1M ONE Rx#: [id number] Sodium Phosphate Inj 30 MMOL In 260 / 260 NS Inj 250 ML @ 42 mls/hr IV. SIG UNSCH PRN Rx#:[id number] Oral 50 / 50 Intake (Blood Product) Amt 400 / 400 Rbc As-3 Leukoreduced Unit 400 / 400 [id number] Output: Urine Amount (Catheter) 755 / 755 445 / 445 Indwelling Temp Sensing 755 / 755 445 / 445 Catheter Gastric Drainage 100 / 100 Nasogastric Tube 100 / 100 Chest Tube Drainage 220 / 220 370 / 370 Left 220 / 220 370 / 370 Other: Bladder Irrigation Fluid - Amount Instilled Indwelling Temp Sensing 30 Catheter Bladder Irrigation Fluid - Amount Drained Indwelling Temp Sensing 30 Catheter Date of Last Bowel Movement 06/14/18 06/14/18 Result Diagrams: 06/18/18 04:45 10/07/18 04:45 Objective Remarks: GENERAL: Elderly male, lying in bed, confused HEENT: Normocephalic. Atraumatic. Pupils equal, round, reactive, conjugate. Mucous membranes are moist NECK: Trachea is midline. There is no JVD. Right IJ triple-lumen catheter in place, site clean dry and intact. CHEST: face mask o2. Equal chest rise. Left chest tube in place with minimal serous output CARDIOVASCULAR: Normal rate, regular rhythm. Sinus. ABDOMEN: Soft, minimally and appropriately tender to palpation, nondistended. No guarding. Abdominal binder in place MUSCULOSKELETAL: Pulses 2+. No peripheral edema. NEUROLOGICAL: RASS +1. CAM +. oriented to person only. Follows commands. No focal deficits. Assessment and Plan - Assessment and Plan Plan: Assessment: 73yM POD 3 s/p open thoracoabdominal aortic aneurysm repair. Active Problems: s/p open thoracoabdominal aortic aneurysm repair 10/ Acute Post-operative pain- improving Anemia secondary to acute blood loss- requiring transfusion Coumadin Coagulopathy- resolved Lupus anticoagulant positive Acute agitated delirium Chronic urinary retention/BPH Atrial fibrillation with rapid ventricular response Acute intravascular volume depletion Plan: - remain in ICU today. - precedex and haldol for goal RASS 0. - restraints for patient safety - amio drip - may need AVN blockade, but borderline hypotensive at this point - 4gm mgso4. - levophed if needed to keep map > 65mmHg - replace art line - trend lactates, abg - no symptoms to suggest periop [facility]: afib appear to be intravascular volume related. - 2 units prbc and re-check hgb - keep gunn - LR @ 84/hr. - keep central line today. - NPO with ice chips for comfort. no flatus or ROBF yet. - statin - daily bmp, mg, phos - daily coags - daily cbc - hold off on anticoagulation in the setting of persistent anemia. - when more stable, still needs aggressive PT. - aggressive pulmonary toilet. - SCDs Critical care will continue to follow along while patient remains in the CVICU.
[2018-06-18] MEDS ORDERED: Sodium Chlor 0.9% Inj 250 ML IV.SIG SCH (07:00)
[2018-06-18] MEDS ORDERED: Magnesium Sulfate Inj 4 GM in Sodium Chlor 0.9% Inj 92 ML IV.SIG ONE (07:00)
[2018-06-18] MEDS: Haloperidol Inj 5 MG/ML Ampul IV.PUSH PRN ×5 (07:19→21:11)
--- NOTE | 2018-06-18 08:44 | P.PNVS ---
Subjective Post Op Day #: 3 Procedure: TAAA and LEFT renal artery bypass Subjective/Hospital Course: a-fib last night, amio gtt Hct drop and low UOP, responded to IVC Getting more PRBC this morning clinically, looks ok this morning alert, oriented no c/o nausea; + thirsty Objective Neuro: confused overnight, better this morning Pulmonary: FM ok sats CT with serous drainage Cardiac: afib , amio gtt, rate controlled bp on - no pressor req since OR FEN/GI: UOP marginal yesterday, responded to IVF e-lytes repleted today abdomen full but no TTP : Alba to stay in Vascular: feet pink and perfused Laboratory Results - last 24 hr 06/17/18 06/17/18 06/17/18 16:10 17:20 23:00 WBC RBC Hgb 7.9 L D 8.2 L Hct 22.7 L 23.0 L MCV MCH MCHC RDW Plt Count MPV PT INR APTT Sodium Potassium Chloride Carbon Dioxide Anion Gap BUN Creatinine Estimated GFR Random Glucose Calcium Phosphorus Magnesium Blood Type A Positive Antibody Screen Negative MTS Gel Crossmatch See Detail 06/18/18 06/18/18 06/18/18 04:45 04:45 04:45 WBC 8.4 RBC 2.03 L Hgb 7.2 L Hct 20.3 L* MCV 100.2 H D MCH 35.3 H MCHC 35.2 RDW 15.2 Plt Count 125 L MPV 7.4 PT 10.6 INR 1.0 APTT 27.8 Sodium 144 Potassium 3.9 Chloride 107 Carbon Dioxide 30.2 Anion Gap 7 BUN 25 H Creatinine 1.19 Estimated GFR 60 L Random Glucose 134 H Calcium 8.0 L Phosphorus 1.6 L Magnesium 1.7 Blood Type Antibody Screen MTS Gel Crossmatch 06/18/18 06:28 WBC RBC Hgb Hct MCV MCH MCHC RDW Plt Count MPV PT INR APTT Sodium Potassium Chloride Carbon Dioxide Anion Gap BUN Creatinine Estimated GFR Random Glucose Calcium Phosphorus Magnesium Blood Type Antibody Screen MTS Gel Crossmatch See Detail Assessment and Plan - Assessment (1) Thoracoabdominal aortic aneurysm (TAAA) without rupture Code(s): I71.6 - Thoracoabdominal aortic aneurysm, without rupture Status: Acute - Plan POD#3 s/p TAAA and L renal artery bypass likely still pro-inflammatory with IVF requirement and PRBC but bp maintained 1. Tx 2U PRBC 2. Supportive respiratory care; if req reintubation, will need NGT and likely trickle TF 3. Hold anticoagulation for now 4. PT/ROM ok 5. CT, Alba to stay in 6. Replete regina D/W Dr. Sam. Discharge Planning: CVICU for now
--- NOTE | 2018-06-18 09:57 | ECG ---
Date Performed: 06/17/2018 Time Performed: 19:04:04 PTAGE: 73 years EKG: Atrial fibrillation with uncontrolled ventricular response Extensive ST-T changes may be du e to myocardial ischemia Low QRS voltages in precordial leads Abnormal ECG PREVIOUS TRACING : 06/15/2018 08.30 DOCTOR: Chad Saucedo Interpretating Date/Time 06/18/2018 09:54:48
[2018-06-18] MEDS: Brimonidine 0.2% Opth Drops 5 ML Bottle EACH EYE SCH ×2 (10:13→21:20)
[2018-06-18] MEDS: Famotidine 20 MG Tablet PO SCH ×2 (10:13→21:12)
[2018-06-18] MEDS: Senna/Docusate Sodium 8.6/50 MG Tablet PO SCH ×2 (10:14→21:12)
[2018-06-18] MEDS: Sodium Chloride 0.9% 2 ML Flush BID IV.FLUSH SCH ×2 (10:14→21:11)
[2018-06-18] MEDS ORDERED: Albumin Human 5% Inj 500 ML IV.SIG STA (10:53)
[2018-06-18] MEDS: Sodium Phosphate Inj 30 MMOL in Sodium Chlor 0.9% Inj 250 ML IV.SIG PRN (11:10)
[2018-06-18 15:07] LABS: Hematocrit 24.6 % (39.0-51.0); Hemoglobin 8.8 gm/dL (13.0-17.0)
--- NOTE | 2018-06-18 15:54 | ECHRPT ---
Indication: ATRIAL FIB/FLUTTER CONCLUSIONS Normal left ventricular size. Wall thickness is measured at the upper limits of normal. Normal left ventricular systolic function with an estimated ejection fraction of 60-65%. Aortic valve sclerosis is present. There is trace tricuspid valve regurgitation. The estimated pulmonary arterial pressure is 38.1 mmHg. BP: / HR: Rhythm: Atrial fibrillation, Atrial flut ter MEASUREMENTS (Male / Female) Normal Values Technical Quality:Fair 2D ECHO LV Diastolic Diameter PLAX 5.0 cm 4.2 - 5.9 / 3.9 - 5.3 cm LV Systolic Diameter PLAX 3.6 cm IVS Diastolic Thickness 1.0 cm 0.6 - 1.0 / 0.6 - 0.9 cm LVPW Diastolic Thickness 1.0 cm 0.6 - 1.0 / 0.6 - 0.9 cm LV Relative Wall Thickness 0.4 RV Internal Dim ED PLAX 2.3 cm LVOT Diameter 2.1 cm Aortic Root Diameter 3.3 cm LA Systolic Diameter LX 3.2 cm 3.0 - 4.0 / 2.7 - 3.8 cm M-MODE AV Cusp Separation MM 1.6 cm DOPPLER AV Peak Velocity 164.0 cm/s AV Peak Gradient 10.8 mmHg AV Mean Gradient 4.0 mmHg AV Velocity Time Integral 25.7 cm LVOT Peak Velocity 132.0 cm/s LVOT Peak Gradient 7.0 mmHg LVOT Velocity Time Integral 21.0 cm AV Area Cont Eq vti 2.8 cm AV Area Cont Eq pk 2.8 cm Mitral E Point Velocity 94.3 cm/s Mitral A Point Velocity 80.9 cm/s Mitral E to A Ratio 1.2 LV E' Lateral Velocity 7.7 cm/s Mitral E to LV E' Lateral Ratio 12.2 LV E' Septal Velocity 8.0 cm/s Mitral E to LV E' Septal Ratio 11.8 TR Peak Velocity 265.0 cm/s TR Peak Gradient 28.1 mmHg Right Atrial Pressure 10.0 mmHg Pulmonary Artery Systolic Pressu 38.1 mmHg Right Ventricular Systolic Press 38.1 mmHg PV Peak Velocity 82.0 cm/s PV Peak Gradient 2.7 mmHg FINDINGS LEFT VENTRICLE Normal left ventricular size. Wall thickness is measured at the upper limits of normal. The left ventricular systolic function is normal with an estimated ejection fraction in the range of 60-65%. RIGHT VENTRICLE Normal right ventricular size and systolic function. LEFT ATRIUM The left atrial size is normal. RIGHT ATRIUM The right atrial size is normal. ATRIAL SEPTUM The interatrial septum not well visualized. AORTA The aortic root and proximal ascending aorta are normal in size on limited imaging. MITRAL VALVE Structurally normal mitral valve. No mitral valve stenosis or regurgitation. AORTIC VALVE Aortic valve sclerosis is present. TRICUSPID VALVE There is trace tricuspid valve regurgitation. The estimated pulmonary arterial pressure is 38.1 mmHg. PULMONARY VALVE The pulmonary valve is not well visualized. VESSELS The inferior vena cava was not well visualized. PERICARDIUM No pericardial effusion. Chad Saucedo MD (Electronically Signed) Final Date:18 June 2018 15:52
--- NOTE | 2018-06-18 15:57 | P.DIET ---
Nutritional Evaluation Screening comments: NPO ALERT X 3 DAYS. Please consult dietitian as needed.
[2018-06-18] MEDS: Melatonin 5 MG Tablet PO SCH (21:23)
[2018-06-18 21:47] LABS: ABG Base Excess 4.6 mmol/L (-2-2); ABG PCO2 43 mmHg (38-42); ABG PO2 47 mmHG (61-120)
--- NOTE | 2018-06-18 22:01 | XR ---
EXAM DATE: 06/18/2018 12:00 AM EDT AGE/SEX: 73 years / Male INDICATIONS: Respiratory failure CLINICAL DATA: This is the patient's subsequent encounter. Patient reports that signs and symptoms h ave been present for 3 days and indicates a pain score of Nonresponsive. MEDICAL/SURGICAL HISTORY: Non-responsive. Non-responsive. COMPARISON: C, CHEST 1V SINGLE AP, 06/15/2018. . FINDINGS: Interval development of bilateral lower lung infiltrates with partial consolidation in the right lowe r lung and lower consolidation left lower lung. There is loss of aeration of the entire right hemidia phragm and of the medial left hemidiaphragm. The heart is stable and normal in size. Right subclavian catheter tip projects over the distal superior vena cava. CONCLUSION: Interval development of bilateral lower lung partially consolidated infiltrates. Electronically signed by: Kang Sanchez MD 06/18/2018 10:00 PM EDT
[2018-06-18 22:06] LABS: Hemoglobin 8.6 gm/dL (13.0-17.0)
[2018-06-19] MEDS: Haloperidol Inj 5 MG/ML Ampul IV.PUSH PRN (00:35)
[2018-06-19] MEDS: Dexmedetomidine Inj 200 MCG in Sodium Chlor 0.9% Inj 48 ML IV.CONT PRN (04:41)
[2018-06-19 05:12] LABS: Hematocrit 23.1 % (39.0-51.0); Hemoglobin 8.1 gm/dL (13.0-17.0); Mean Corpuscular Hemoglobin 32.8 pg (27.0-34.0); Mean Corpuscular Volume 93.6 fL (80.0-100.0); Mean Platelet Volume 6.6 fL (7.0-11.0); Platelet Count 123 th/mm3 (150-450); Red Blood Count 2.46 mil/mm3 (4.50-5.90); Red Cell Distribution Width 22.9 % (11.6-17.2)
[2018-06-19 05:14] LABS: Activated Partial Thrombo Time 26.5 sec (24.3-30.1); Prothrombin Time 10.2 sec (9.8-11.6)
[2018-06-19 05:37] LABS: Calcium 7.3 mg/dL (8.5-10.1); Carbon Dioxide 31.6 meq/L (21.0-32.0); Magnesium 2.2 mg/dL (1.5-2.5); Phosphorus 2.5 mg/dL (2.5-4.9); Potassium 3.7 meq/L (3.5-5.1)
[2018-06-19 05:49] LABS: Total Protein 4.8 g/dL (6.4-8.2)
[2018-06-19] MEDS ORDERED: Acetaminophen 325 MG Tablet PO PRN (08:39)
--- NOTE | 2018-06-19 09:10 | P.PNCC ---
Subjective Subjective Remarks/Hospital Course: Hospital Course: This is a 73yM who presents for thoracic open aortic aneurysm repair. He underwent left thoracotomy with laparotomy and supramesenteric cross clamp x 23 minutes. He arrives to the CVICU extubated in stable condition. He has bilateral palpable pulses. he is sedate and arousing from anesthesia. complete ROS is unobtainable due to his somnolence. limited ROS negative for chest pain, SOB, nausea, vomiting, headache, sore throat. he has made 200cc urine in the first hour and chest tubes are dry. Of note, I met and evaluated the patient last night prior to his operation and the remainder of the history was given to me by the patient prior to his elective operation. Subjective: 06/16: pain adequately controlled. uop dropped off overnight, but remains > 40cc/ hr. borderline hypotensive this morning. chest tube with minimal serosanguinous output this morning. patient taught to use I.S. at bedside this morning: can pull 750cc. encouraged use. 06/17: blood pressure improved throughout the day yesterday. uop improved. pain adequately controlled. doing well this AM. chest tube more serous. art line discontinued. 06/18: delirious today. went into afib RVR overnight. today persistently anemic- transfusing 2 units prbc. 06/19: Less delirious as per RN, asking for ice chips, no overnight events. Objective Vital Signs / I&O: Vital Signs 06/18/18 08:58 06/18/18 09:15 06/18/18 11:00 Temperature 97.9 F 97.3 F L 98.5 F Pulse Rate 84 78 82 Respiratory Rate 20 20 20 Blood Pressure 118/63 95/55 L 147/73 H Pulse Oximetry 96 96 92 L 06/18/18 15:00 06/18/18 20:00 06/18/18 21:00 Temperature 98.4 F 98.1 F Pulse Rate 84 72 Respiratory Rate 20 22 Blood Pressure 141/74 H 153/81 H Pulse Oximetry 92 L 90 L 93 L 06/19/18 00:00 06/19/18 03:00 06/19/18 04:00 Temperature 100.0 F H 99.0 F Pulse Rate 90 51 L Respiratory Rate 22 22 16 Blood Pressure 187/90 H 167/84 H Pulse Oximetry 97 95 06/19/18 07:00 06/19/18 08:15 Temperature Pulse Rate 76 Respiratory Rate Blood Pressure Pulse Oximetry 95 Intake & Output 06/18/18 06/19/18 06/19/18 18:59 06:59 18:59 Intake Total 3010 / 3010 550 / 550 1000 / 1000 Output Total 855 / 855 790 / 790 Balance 2155 / 2155 -240 / -240 1000 / 1000 Weight 95 kg Intake: IV 2210 / 2210 550 / 550 1000 / 1000 Cordarone Inj 450 MG In D5W Inj 250 / 250 241 ML @ 1 MG/MIN 33.33 mls/hr IV.CONT TITRATE PRN Rx#: [id number] Precedex Inj 200 MCG In NS Inj 50 / 50 100 / 100 48 ML @ 0.2 MCG/KG/HR 4.55 mls/ hr IV.CONT TITRATE PRN Rx#: [id number] LR 1000 mL Inj 1,000 ML @ 84 1000 / 1000 1000 / 1000 mls/hr IV.CONT .[id number] AYDE Rx# :[id number] Ofirmev Inj 1,000 mg In 100 ml 200 / 200 200 / 200 @ 300 mls/hr IV.SIG Q6H AYDE Rx# :[id number] Alburx 5% Inj 500 ML @ 250 mls/ 500 / 500 hr IV.SIG STAT STA Rx#:[id number] Magnesium Sulfate Inj 4 GM In 100 / 100 NS Inj 92 ML @ 50 mls/hr IV.SIG UNSCH PRN Rx#:[id number] KCl 20 mEq Premix Inj 20 meq In 100 / 100 100 ml @ 50 mls/hr IV.SIG Q2H PRN Rx#:[id number] Sodium Phosphate Inj 30 MMOL In 260 / 260 NS Inj 250 ML @ 42 mls/hr IV. SIG UNSCH PRN Rx#:[id number] Oral 0 / 0 Intake (Blood Product) Amt 800 / 800 Rbc As-3 Leukoreduced Unit 400 / 400 [id number] Rbc As-3 Leukoreduced Unit 400 / 400 [id number] Output: Urine Amount (Catheter) 655 / 655 490 / 490 Indwelling Temp Sensing 655 / 655 490 / 490 Catheter Chest Tube Drainage 200 / 200 300 / 300 Left 200 / 200 300 / 300 Other: Date of Last Bowel Movement 06/14/18 06/14/18 06/14/18 # Bowel Movements 0 Result Diagrams: 06/19/18 04:45 06/19/18 04:45 Objective Remarks: GENERAL: Elderly male, lying in bed, no acute distress HEENT: NCAT, PERRL NECK: Trachea is midline. Right IJ triple-lumen catheter in place, site clean dry and intact. CHEST: Face mask o2. Equal chest rise. Left chest tube in place with minimal serous output, no air leak CARDIOVASCULAR: Normal rate, regular rhythm. Sinus. ABDOMEN: Soft, minimal left-sided tenderness, no guarding or rebound, non- distended. Abdominal binder in place. MUSCULOSKELETAL: Pulses 2+. 1-2+ peripheral edema NEUROLOGICAL: RASS +1. Oriented x 3, conversational, follows commands. No focal deficits. Assessment and Plan - Assessment and Plan Plan: Assessment: 73yM POD 3 s/p open thoracoabdominal aortic aneurysm repair, POD # 4. Active Problems: s/p open thoracoabdominal aortic aneurysm repair 10/ Acute Post-operative pain- improving Anemia secondary to acute blood loss- requiring transfusion Coumadin Coagulopathy- resolved Lupus anticoagulant positive Acute agitated delirium Chronic urinary retention/BPH Atrial fibrillation with rapid ventricular response Acute intravascular volume depletion Plan: Neuro: - Precedex and haldol for goal RASS 0, less delirious today as per RN. * Delirium precautions (lights on/ shades up during the day, limit daytime napping, limit nighttime disruptions, frequent re-orientation) - Continues to require mitts to prevent interference with medical care. - Change Ofirmev PRN to Tylenol PRN Cardio: - Amio drip currently at 0.5, transition to PO - Echo yesterday showed EF 60-65%, no wall motion abnormalities - no symptoms to suggest cooper-op [facility] - Gentle diuresis today Pulm: - Currently tolerating nasal cannula - Aggressive pulmonary toilet, incentive spirometry - Chest tube management as per surgery; still on suction, no air leak Heme: - s/p 2 units PRBCs yesterday with appropriate rise in Hg, no active signs of bleeding, continue to trend - Start SQH for DVT prophylaxis (patient is high-risk given history of DVT and antiphospholipid syndrome) F/E/N: - Tolerating ice chips, now with bowel sounds, will advance to clears with 1200 cc fluid restriction - D/C IVF - Statin - aggressive pulmonary toilet, PT eval (OK to be out of bed with assistance) - SCDs, SQH - Patient requires continued central line, arterial line, and Alba today for multiple drips and accurate Is/Os, will d/c both tomorrow if he remains stable overnight Counseling/ Coordination of Care: Total critical care time: 38 minutes. This includes examining the patient, gathering history from someone other than the patient (i.e., chart review), discussing the patient's care with other providers, managing the patient's amiodarone drip, ordering and interpreting radiology studies, ordering and interpreting laboratory studies, managing the patient's pain and sedation requirements, re-evaluation at frequent intervals, and documentation. All critical care time is separate and exclusive of procedures, teaching, and patient/ family updates. Code Status: Full
--- NOTE | 2018-06-19 09:13 | P.PNVS ---
Subjective Post Op Day #: 4 Procedure: TAAA and LEFT renal artery bypass Subjective/Hospital Course: more orientated today answers appropriately NAVA HR better Objective Neuro: more alert, NAVA Pulmonary: NRB, decent sats CXR ok Cardiac: SR 70's bp ok FEN/GI: UOP decent ID Antibiotics (date/duration): none Heme: stable Drains: CT with serous drainage Laboratory Results - last 24 hr 06/18/18 06/18/18 06/18/18 06:28 14:20 21:20 WBC RBC Hgb 8.8 L Hct 24.6 L MCV MCH MCHC RDW Plt Count MPV PT INR APTT Puncture Site Right radial Patient Temperature 98.6 O2 Saturation 80 L* ABG pH 7.44 H ABG pCO2 43 H ABG pO2 47 L* ABG HCO3 29 H ABG O2 Content 10.4 L ABG Base Excess 4.6 H ABG Methemoglobin 1.8 Tc Test Present Hemoglobin 9.3 L Carboxyhemoglobin 1.7 O2 Delivery Device Simple mask Liter Flow 12.00 Critical Value Yes Sodium Potassium Chloride Carbon Dioxide Anion Gap BUN Creatinine Estimated GFR Random Glucose Calcium Prot Corrected Calcium Phosphorus Magnesium Total Protein MTS Gel Crossmatch See Detail 06/18/18 06/19/18 06/19/18 21:50 04:45 04:45 WBC 7.0 RBC 2.46 L Hgb 8.6 L 8.1 L Hct 24.0 L 23.1 L MCV 93.6 D MCH 32.8 MCHC 35.0 RDW 22.9 H D Plt Count 123 L MPV 6.6 L PT 10.2 INR 1.0 APTT 26.5 Puncture Site Patient Temperature O2 Saturation ABG pH ABG pCO2 ABG pO2 ABG HCO3 ABG O2 Content ABG Base Excess ABG Methemoglobin Tc Test Hemoglobin Carboxyhemoglobin O2 Delivery Device Liter Flow Critical Value Sodium Potassium Chloride Carbon Dioxide Anion Gap BUN Creatinine Estimated GFR Random Glucose Calcium Prot Corrected Calcium Phosphorus Magnesium Total Protein MTS Gel Crossmatch 06/19/18 04:45 WBC RBC Hgb Hct MCV MCH MCHC RDW Plt Count MPV PT INR APTT Puncture Site Patient Temperature O2 Saturation ABG pH ABG pCO2 ABG pO2 ABG HCO3 ABG O2 Content ABG Base Excess ABG Methemoglobin Tc Test Hemoglobin Carboxyhemoglobin O2 Delivery Device Liter Flow Critical Value Sodium 144 Potassium 3.7 Chloride 107 Carbon Dioxide 31.6 Anion Gap 5 BUN 23 H Creatinine 0.86 Estimated GFR 87 L Random Glucose 109 H Calcium 7.3 L* Prot Corrected Calcium 8.6 Phosphorus 2.5 Magnesium 2.2 Total Protein 4.8 L MTS Gel Crossmatch Impressions Chest X-Ray 06/18/18 00:00 CONCLUSION: Interval development of bilateral lower lung partially consolidated infiltrates. Assessment and Plan - Assessment (1) Thoracoabdominal aortic aneurysm (TAAA) without rupture Code(s): I71.6 - Thoracoabdominal aortic aneurysm, without rupture Status: Acute - Plan POD#4 s/p TAAA and L renal artery bypass more stable, likely ready to attempt gentle diuresis 1. Lasix 20mg IV x 1 2. Supportive respiratory care; wean O2 as tolerated 3. Given + flatus, ok for clear liq when resp status tolerates 4. OOB/TC 5. Ok for prophylactic heparin, ASA 6. Hold anticoagulation for now 7. CT, Alba to stay in D/W Dr. Castrejon and pt family. Discharge Planning: CVICU for now
[2018-06-19] MEDS: Senna/Docusate Sodium 8.6/50 MG Tablet PO SCH ×2 (09:50→21:44)
[2018-06-19] MEDS: Famotidine 20 MG Tablet PO SCH ×2 (09:50→21:44)
[2018-06-19] MEDS: Sodium Chloride 0.9% 2 ML Flush BID IV.FLUSH SCH ×2 (09:51→21:44)
[2018-06-19] MEDS: Brimonidine 0.2% Opth Drops 5 ML Bottle EACH EYE SCH ×2 (09:51→21:43)
[2018-06-19] MEDS ORDERED: Amiodarone 200 MG Tablet PO ONE (12:00)
[2018-06-19] MEDS: Heparin - SQ 10,000 UNITS/ML Vial SQ SCH ×2 (13:39→21:44)
[2018-06-19] MEDS: Amiodarone 200 MG Tablet PO SCH (21:43)
[2018-06-19] MEDS: Melatonin 5 MG Tablet PO SCH (21:44)
[2018-06-20 04:41] LABS: Hematocrit 23.6 % (39.0-51.0); Hemoglobin 8.1 gm/dL (13.0-17.0); Mean Corpuscular HGB Conc 34.1 % (32.0-36.0); Mean Corpuscular Hemoglobin 32.7 pg (27.0-34.0); Mean Corpuscular Volume 95.8 fL (80.0-100.0); Mean Platelet Volume 6.4 fL (7.0-11.0); Platelet Count 143 th/mm3 (150-450); Red Blood Count 2.47 mil/mm3 (4.50-5.90); Red Cell Distribution Width 21.6 % (11.6-17.2)
[2018-06-20 04:53] LABS: Activated Partial Thrombo Time 24.7 sec (24.3-30.1); Prothrombin Time 9.9 sec (9.8-11.6)
[2018-06-20 05:02] LABS: Anion Gap 9 meq/L (5-15); Blood Urea Nitrogen 23 mg/dL (7-18); Carbon Dioxide 30.3 meq/L (21.0-32.0); Chloride 104 meq/L (98-107); Glomerular Filtration Rate Greater Than 89 mL/min (>89); Glucose,Random 109 mg/dL (74-106); Magnesium 1.9 mg/dL (1.5-2.5); Phosphorus 2.1 mg/dL (2.5-4.9); Potassium 3.5 meq/L (3.5-5.1); Sodium 143 meq/L (136-145)
--- NOTE | 2018-06-20 07:41 | P.PNCC ---
Subjective Subjective Remarks/Hospital Course: Hospital Course: This is a 73yM who presents for thoracic open aortic aneurysm repair. He underwent left thoracotomy with laparotomy and supramesenteric cross clamp x 23 minutes. He arrives to the CVICU extubated in stable condition. He has bilateral palpable pulses. he is sedate and arousing from anesthesia. complete ROS is unobtainable due to his somnolence. limited ROS negative for chest pain, SOB, nausea, vomiting, headache, sore throat. he has made 200cc urine in the first hour and chest tubes are dry. Of note, I met and evaluated the patient last night prior to his operation and the remainder of the history was given to me by the patient prior to his elective operation. Subjective: 06/16: pain adequately controlled. uop dropped off overnight, but remains > 40cc/ hr. borderline hypotensive this morning. chest tube with minimal serosanguinous output this morning. patient taught to use I.S. at bedside this morning: can pull 750cc. encouraged use. 06/17: blood pressure improved throughout the day yesterday. uop improved. pain adequately controlled. doing well this AM. chest tube more serous. art line discontinued. 06/18: delirious today. went into afib RVR overnight. today persistently anemic- transfusing 2 units prbc. 06/19: Less delirious as per RN, asking for ice chips, no overnight events. 06/20: Desaturated overnight, improved with face mask O2. Patient has no complaints this morning. Objective Vital Signs / I&O: Vital Signs 06/19/18 08:15 06/19/18 10:44 06/19/18 11:00 Temperature 97.5 F L Pulse Rate 72 70 Respiratory Rate 20 Blood Pressure 105/57 L Pulse Oximetry 95 94 L 06/19/18 11:06 06/19/18 11:09 06/19/18 12:30 Temperature Pulse Rate Respiratory Rate Blood Pressure Pulse Oximetry 94 L 95 95 06/19/18 13:17 06/19/18 13:41 06/19/18 15:00 Temperature Pulse Rate 88 Respiratory Rate 21 Blood Pressure 158/79 H Pulse Oximetry 92 L 97 93 L 06/19/18 17:00 06/19/18 17:32 06/19/18 19:55 Temperature Pulse Rate Respiratory Rate 18 Blood Pressure Pulse Oximetry 96 92 L 06/19/18 20:00 06/20/18 00:00 06/20/18 01:25 Temperature 98.1 F 98.4 F Pulse Rate 95 H 78 Respiratory Rate 20 20 Blood Pressure 185/87 H 147/66 H Pulse Oximetry 90 L 97 94 L 06/20/18 03:00 06/20/18 04:00 06/20/18 07:00 Temperature 98.3 F Pulse Rate 95 H 84 Respiratory Rate 20 16 Blood Pressure 153/81 H 162/82 H Pulse Oximetry 96 96 98 Intake & Output 06/19/18 06/20/18 06/20/18 18:59 06:59 18:59 Intake Total 1900 / 1900 720 / 720 Output Total 2895 / 2895 855 / 855 Balance -995 / -995 -135 / -135 Weight 96.5 kg Intake: IV 1350 / 1350 Cordarone Inj 450 MG In D5W Inj 100 / 100 241 ML @ 1 MG/MIN 33.33 mls/hr IV.CONT TITRATE PRN Rx#: [id number] LR 1000 mL Inj 1,000 ML @ 84 1000 / 1000 mls/hr IV.CONT .[id number] AYDE Rx# :[id number] NS Inj 250 ML @ 15 mls/hr IV. 250 / 250 SIG ONCE AYDE Rx#:[id number] Oral 550 / 550 720 / 720 Output: Urine Amount (Catheter) 2625 / 2625 775 / 775 Indwelling Temp Sensing 2625 / 2625 775 / 775 Catheter Chest Tube Drainage 270 / 270 80 / 80 Left 270 / 270 80 / 80 Other: Date of Last Bowel Movement 06/14/18 06/14/18 06/14/18 # Bowel Movements 0 Result Diagrams: 06/20/18 04:20 06/20/18 04:20 Objective Remarks: GENERAL: Elderly male sitting up in chair, no acute distress, well-appearing HEENT: NCAT, PERRL NECK: Right IJ triple-lumen catheter in place, site clean dry and intact. CHEST: Face mask O2. Normal work of breathing, no wheezing or rhonchi. Left chest tube in place with minimal serous output, no air leak. CARDIOVASCULAR: Normal rate, regular rhythm. Sinus. ABDOMEN: Soft, non-tender in all quadrants, non-distended. Abdominal binder in place. MUSCULOSKELETAL: Pulses 2+. 1+ peripheral edema NEUROLOGICAL: RASS +2. Oriented x 3, conversational, follows commands. No focal deficits. Assessment and Plan - Assessment and Plan Plan: Assessment: 73yM POD 3 s/p open thoracoabdominal aortic aneurysm repair, POD # 4. Active Problems: s/p open thoracoabdominal aortic aneurysm repair 10 Acute Post-operative pain- improving Anemia secondary to acute blood loss- requiring transfusion Coumadin Coagulopathy- resolved Lupus anticoagulant positive Acute agitated delirium Chronic urinary retention/BPH Atrial fibrillation with rapid ventricular response Acute intravascular volume depletion Plan: Neuro: - D/C Precedex * Delirium precautions (lights on/ shades up during the day, limit daytime napping, limit nighttime disruptions, frequent re-orientation) - No longer requires mitts/ restraints - Tylenol PRN fever/ pain Cardio: - Continue PO amio - Echo 06/18 showed EF 60-65%, no wall motion abnormalities - Diuresed 3700cc (net negative 1100) with 20 mg lasix yesterday, BUN/creat unchanged, BP elevated; will continue to diurese again today Pulm: - Tolerated NC during the day yesterday, required PRB overnight; hopefully respiratory status will continue to improve with further diuresis - Aggressive pulmonary toilet, incentive spirometry - Chest tube management as per surgery; still on suction, no air leak Heme: - Hg 8.1 x 2 days, no signs of active bleeding - SQH for DVT prophylaxis, will need to be restarted on full anticoagulation prior to discharge for history of lupus anticoagulant/ DVT F/E/N: - Tolerated clears yesterday, OK to advance to cardiac diet as per surgery - Statin - aggressive pulmonary toilet, PT (OK to be out of bed with assistance) - SCDs, SQH - D/C Alba, D/C central line, arterial line is already out Overall: The patient remains critically ill but stable/ improving. He will benefit from another day of intensive care/ aggressive pulmonary toilet/ diuresis and can likely be transitioned to step-down tomorrow if he continues to improve. Counseling/ Coordination of Care: Total critical care time: 32 minutes. This includes examining the patient, gathering history from someone other than the patient (i.e., chart review), discussing the patient's care with other providers, ordering and interpreting radiology studies, ordering and interpreting laboratory studies, managing the patient's pain and sedation requirements, re-evaluation at frequent intervals, and documentation. All critical care time is separate and exclusive of procedures, teaching, and patient/ family updates. Code Status: Full
[2018-06-20] MEDS: Heparin - SQ 10,000 UNITS/ML Vial SQ SCH ×3 (07:52→21:20)
[2018-06-20] MEDS: Senna/Docusate Sodium 8.6/50 MG Tablet PO SCH ×2 (08:40→21:22)
[2018-06-20] MEDS: Brimonidine 0.2% Opth Drops 5 ML Bottle EACH EYE SCH ×2 (08:40→21:22)
[2018-06-20] MEDS: Amiodarone 200 MG Tablet PO SCH ×2 (08:40→21:22)
[2018-06-20] MEDS: Famotidine 20 MG Tablet PO SCH ×2 (08:41→21:22)
[2018-06-20] MEDS: Sodium Chloride 0.9% 2 ML Flush BID IV.FLUSH SCH ×2 (08:41→21:23)
--- NOTE | 2018-06-20 14:24 | P.PNVS ---
Subjective Post Op Day #: 5 Procedure: TAAA and LEFT renal artery bypass Subjective/Hospital Course: seen this morning. Looks great ramona diuresis 1L yesterday ramona some po pain controlled for the most part Objective Neuro: alert, sitting in bed and has been OOB TC; NAVA Pulmonary: FM last night because of desats, better today with more diuresis no SOB Cardiac: reg rate, transitioned to amio po FEN/GI: ramona some po no nausea abdomen soft : Alba out this morning + voided since rec'd lasix this morning Heme: Hct stable Laboratory Results - last 24 hr 06/20/18 06/20/18 06/20/18 04:20 04:20 04:20 WBC 8.0 RBC 2.47 L Hgb 8.1 L Hct 23.6 L MCV 95.8 MCH 32.7 MCHC 34.1 RDW 21.6 H Plt Count 143 L MPV 6.4 L PT 9.9 INR 1.0 APTT 24.7 Sodium 143 Potassium 3.5 Chloride 104 Carbon Dioxide 30.3 Anion Gap 9 BUN 23 H Creatinine 0.82 Estimated GFR Greater than 89 Random Glucose 109 H Calcium 8.0 L Phosphorus 2.1 L Magnesium 1.9 Impressions Chest X-Ray 06/18/18 00:00 CONCLUSION: Interval development of bilateral lower lung partially consolidated infiltrates. Assessment and Plan - Assessment (1) Thoracoabdominal aortic aneurysm (TAAA) without rupture Code(s): I71.6 - Thoracoabdominal aortic aneurysm, without rupture Status: Acute - Plan POD#5 s/p TAAA and L renal artery bypass ramona diuresis yesterday 1. more diuresis today 2. Alba, CVL out today 3. cardiac diet and transition to po meds 4. resume anticoagulation tomorrow (Tue) 5. OOB/PT 6. CT to remain in place for today D/W Dr. Castrejon and pt family. Discharge Planning: ok to transfer to [facility] will likely need rehab in 3-4 days
[2018-06-20] MEDS: Melatonin 5 MG Tablet PO SCH (21:21)
[2018-06-21] MEDS ORDERED: Albumin Human 5% Inj 500 ML IV.SIG ONE ×2 (02:37→02:39)
[2018-06-21] MEDS ORDERED: Digoxin Inj 500 MCG/2 ML Ampul IV.PUSH ONE (02:37)
[2018-06-21] MEDS ORDERED: Digoxin Inj 500 MCG/2 ML Ampul ONE (02:39)
[2018-06-21 05:57] LABS: Hematocrit 23.4 % (39.0-51.0); Hemoglobin 7.9 gm/dL (13.0-17.0); Mean Corpuscular HGB Conc 33.9 % (32.0-36.0); Mean Corpuscular Hemoglobin 33.3 pg (27.0-34.0); Mean Corpuscular Volume 98.2 fL (80.0-100.0); Mean Platelet Volume 6.7 fL (7.0-11.0); Platelet Count 167 th/mm3 (150-450); Red Blood Count 2.38 mil/mm3 (4.50-5.90); Red Cell Distribution Width 20.1 % (11.6-17.2); White Blood Count 6.6 th/mm3 (4.0-11.0)
[2018-06-21 06:17] LABS: Anion Gap 8 meq/L (5-15); Blood Urea Nitrogen 19 mg/dL (7-18); Carbon Dioxide 30.5 meq/L (21.0-32.0); Chloride 105 meq/L (98-107); Glomerular Filtration Rate Greater Than 89 mL/min (>89); Glucose,Random 110 mg/dL (74-106); Magnesium 1.9 mg/dL (1.5-2.5); Phosphorus 2.5 mg/dL (2.5-4.9); Potassium 3.7 meq/L (3.5-5.1); Sodium 143 meq/L (136-145)
[2018-06-21] MEDS: Heparin - SQ 10,000 UNITS/ML Vial SQ SCH (07:35)
--- NOTE | 2018-06-21 07:38 | P.PNVS ---
Subjective Post Op Day #: 6 Procedure: TAAA and LEFT renal artery bypass Subjective/Hospital Course: continues to look great some anorexia but no nausea pain controlled has been OOB TC but still appropriately weak Objective Neuro: alert, oriented, NAVA, pain controlled Pulmonary: CT in place about 150cc out in 24h NC O2 with good sats Cardiac: reg rate, HD 80s this morning bp ok FEN/GI: E'lytes ok; K 3.7 and needs repletion cr stable good UOP and excellent voiding since Alba out ID Antibiotics (date/duration): none ID Cultures: none Heme: Hct stable, plt ok Vascular: incision ok; abdomen soft Laboratory Results - last 24 hr 06/21/18 06/21/18 05:36 05:36 WBC 6.6 RBC 2.38 L Hgb 7.9 L Hct 23.4 L MCV 98.2 MCH 33.3 MCHC 33.9 RDW 20.1 H Plt Count 167 MPV 6.7 L Sodium 143 Potassium 3.7 Chloride 105 Carbon Dioxide 30.5 Anion Gap 8 BUN 19 H Creatinine 0.79 Estimated GFR Greater than 89 Random Glucose 110 H Calcium 8.0 L Phosphorus 2.5 Magnesium 1.9 Assessment and Plan - Assessment (1) Thoracoabdominal aortic aneurysm (TAAA) without rupture Code(s): I71.6 - Thoracoabdominal aortic aneurysm, without rupture Status: Acute - Plan POD#6 s/p TAAA and L renal artery bypass continues to improve 1. normalize with po diet, po pain meds 2. Start gentle anticoagulation today (500U/h hep) and will transition to full heparinization tomorrow after CT out 3. H20 [address] CT today; CXR tomorrow and if no PTX, will d/c chest tube 4. OOB and PT - ambulate as tolerated 5. Transfer to [facility] on telemetry Discharge Planning: ok to transfer to [facility] will likely need rehab in 3-4 days
[2018-06-21] MEDS ORDERED: Heparin Drip 25,000 UNIT/250 ML BAG IV.CONT PRN (08:30)
--- NOTE | 2018-06-21 08:38 | P.PNCC ---
Subjective Subjective Remarks/Hospital Course: Hospital Course: This is a 73yM who presents for thoracic open aortic aneurysm repair. He underwent left thoracotomy with laparotomy and supramesenteric cross clamp x 23 minutes. He arrives to the CVICU extubated in stable condition. He has bilateral palpable pulses. he is sedate and arousing from anesthesia. complete ROS is unobtainable due to his somnolence. limited ROS negative for chest pain, SOB, nausea, vomiting, headache, sore throat. he has made 200cc urine in the first hour and chest tubes are dry. Of note, I met and evaluated the patient last night prior to his operation and the remainder of the history was given to me by the patient prior to his elective operation. Subjective: 06/16: pain adequately controlled. uop dropped off overnight, but remains > 40cc/ hr. borderline hypotensive this morning. chest tube with minimal serosanguinous output this morning. patient taught to use I.S. at bedside this morning: can pull 750cc. encouraged use. 06/17: blood pressure improved throughout the day yesterday. uop improved. pain adequately controlled. doing well this AM. chest tube more serous. art line discontinued. 06/18: delirious today. went into afib RVR overnight. today persistently anemic- transfusing 2 units prbc. 06/19: Less delirious as per RN, asking for ice chips, no overnight events. 06/20: Desaturated overnight, improved with face mask O2. Patient has no complaints this morning. 06/21: Objective Vital Signs / I&O: Vital Signs 06/20/18 09:00 06/20/18 09:54 06/20/18 11:00 Temperature 98.3 F Pulse Rate 91 H Respiratory Rate 16 Blood Pressure 158/77 H Pulse Oximetry 98 97 98 06/20/18 13:00 06/20/18 14:41 06/20/18 15:00 Temperature 98.2 F Pulse Rate 79 Respiratory Rate 16 16 Blood Pressure 142/74 H Pulse Oximetry 97 97 06/20/18 15:53 06/20/18 19:00 06/20/18 20:41 Temperature 98.5 F Pulse Rate 91 H Respiratory Rate 18 Blood Pressure 142/73 H Pulse Oximetry 95 94 L 93 L 06/20/18 23:00 06/21/18 00:00 06/21/18 03:00 Temperature 97.9 F 98.2 F Pulse Rate 76 87 Respiratory Rate 18 18 Blood Pressure 109/57 L 119/59 L Pulse Oximetry 99 98 06/21/18 04:00 06/21/18 08:19 Temperature Pulse Rate Respiratory Rate Blood Pressure Pulse Oximetry 99 95 Intake & Output 06/20/18 06/21/18 06/21/18 18:59 06:59 18:59 Intake Total 1010 / 1010 750 / 750 Output Total 1605 / 1605 480 / 480 Balance -595 / -595 270 / 270 Weight 93.5 kg Intake: IV 260 / 260 500 / 500 Precedex Inj 200 MCG In NS Inj 0 / 0 48 ML @ 0.2 MCG/KG/HR 4.55 mls/ hr IV.CONT TITRATE PRN Rx#: [id number] Buminate 5% Inj 500 ML @ 0 mls/ 500 / 500 hr IV.SIG .STK-MED ONE Rx#: [id number] Potassium Phosphate Inj 30 MMOL 260 / 260 In NS Inj 250 ML @ 42 mls/hr IV.SIG UNSCH PRN Rx#:[id number] Oral 750 / 750 250 / 250 Output: Urine 1525 / 1525 400 / 400 Chest Tube Drainage 80 / 80 80 / 80 Left 80 / 80 80 / 80 Other: # Voids 5 Date of Last Bowel Movement 06/14/18 06/14/18 # Bowel Movements 0 Result Diagrams: 06/21/18 05:36 06/21/18 05:36 Objective Remarks: GENERAL: Elderly male sitting up in chair, no acute distress, well-appearing HEENT: NCAT, PERRL NECK: Trachea midline CHEST: Tolerating nasal cannula. Normal work of breathing, no wheezing or rhonchi, strong productive cough. Left chest tube in place with minimal serous output, now on water seal. CARDIOVASCULAR: Normal rate, regular rhythm. Sinus. ABDOMEN: Soft, non-tender in all quadrants, non-distended. Abdominal binder in place. MUSCULOSKELETAL: Pulses 2+. 1+ peripheral edema, improving NEUROLOGICAL: Alert and oriented x 3, conversational, follows commands. No focal deficits. Assessment and Plan - Assessment and Plan Plan: Assessment: 73yM POD 3 s/p open thoracoabdominal aortic aneurysm repair, POD # 4. Active Problems: s/p open thoracoabdominal aortic aneurysm repair 10/ Acute Post-operative pain- improving Anemia secondary to acute blood loss- resolved Coumadin Coagulopathy- resolved Lupus anticoagulant positive- chronic Acute agitated delirium- resolved Chronic urinary retention/BPH Atrial fibrillation with rapid ventricular response- resolved Acute intravascular volume depletion- resolved Plan: Neuro: - Delirium now completely resolved - Tylenol PRN fever/ pain Cardio: - Continue PO amio - Echo 06/18 showed EF 60-65%, no wall motion abnormalities - Will give 20 lasix x 2 doses today. Patient continues to diurese well but is up 8 kg since admission Pulm: - Aggressive pulmonary toilet, incentive spirometry - Chest tube management as per surgery; transition to water seal today Heme: - Low-dose heparin gtt today with plan for full A/C tomorrow and transition back to coumadin prior to discharge F/E/N: - Tolerating regular diet - Statin - Aggressive pulmonary toilet, PT (OK to be out of bed with assistance) - SCDs, heparin - All lines out, Alba out yesterday, chest tube likely coming out tomorrow Overall: This patient has had an excellent post-operative recovery, requires continued gentle diuresis/ anticoagulation but no longer requires ICU level of care. He can move to CPCU as per Dr. Goss. Counseling/ Coordination of Care: Level 2 follow-up visit To help prompt me to consider important information that might be impacting today's encounter and assessment, information from prior notes written by myself or my colleagues may have been "brought forward" into today's note. My signature on this note, however, is an attestation that I personally performed the exam, history, and/or decision-making noted today, and, unless otherwise indicated, the interactions with patient, family, and staff as well as the review of records all occurred today. I also attest that the listed assessment and stated plan reflect my best clinical judgment today based on the combination of historical information, prior notes, and today's exam/ interactions. Code Status: Full
[2018-06-21 09:48] LABS: Activated Partial Thrombo Time 25.1 sec (24.3-30.1)
[2018-06-21 09:56] LABS: Hematocrit 26.1 % (39.0-51.0); Hemoglobin 9.1 gm/dL (13.0-17.0); Mean Corpuscular HGB Conc 34.8 % (32.0-36.0); Mean Corpuscular Hemoglobin 33.7 pg (27.0-34.0); Mean Corpuscular Volume 96.8 fL (80.0-100.0); Mean Platelet Volume 6.9 fL (7.0-11.0); Platelet Count 200 th/mm3 (150-450); Red Blood Count 2.69 mil/mm3 (4.50-5.90); Red Cell Distribution Width 21.1 % (11.6-17.2); White Blood Count 7.6 th/mm3 (4.0-11.0)
[2018-06-21] MEDS: Brimonidine 0.2% Opth Drops 5 ML Bottle EACH EYE SCH ×2 (09:58→20:58)
[2018-06-21] MEDS: Amiodarone 200 MG Tablet PO SCH ×2 (09:59→20:57)
[2018-06-21] MEDS: Sodium Chloride 0.9% 2 ML Flush BID IV.FLUSH SCH ×2 (10:01→20:58)
[2018-06-21] MEDS: Famotidine 20 MG Tablet PO SCH ×2 (10:01→20:57)
[2018-06-21] MEDS: Senna/Docusate Sodium 8.6/50 MG Tablet PO SCH ×2 (10:02→20:57)
[2018-06-21] MEDS: Melatonin 5 MG Tablet PO SCH (20:57)
[2018-06-22 04:57] LABS: Hematocrit 25.9 % (39.0-51.0); Mean Corpuscular HGB Conc 34.7 % (32.0-36.0); Mean Corpuscular Hemoglobin 33.4 pg (27.0-34.0); Mean Platelet Volume 6.9 fL (7.0-11.0); Platelet Count 224 th/mm3 (150-450); Red Cell Distribution Width 20.5 % (11.6-17.2); White Blood Count 6.6 th/mm3 (4.0-11.0)
[2018-06-22 05:21] LABS: Anion Gap 9 meq/L (5-15); Calcium 8.4 mg/dL (8.5-10.1); Carbon Dioxide 32.2 meq/L (21.0-32.0); Chloride 100 meq/L (98-107); Glomerular Filtration Rate Greater Than 89 mL/min (>89); Glucose,Random 123 mg/dL (74-106); Magnesium 1.9 mg/dL (1.5-2.5); Phosphorus 2.3 mg/dL (2.5-4.9); Potassium 3.4 meq/L (3.5-5.1); Sodium 141 meq/L (136-145)
[2018-06-22 05:22] LABS: Blood Urea Nitrogen 17 mg/dL (7-18)
--- NOTE | 2018-06-22 07:57 | P.PNVS ---
Subjective Post Op Day #: 7 Procedure: TAAA and LEFT renal artery bypass Subjective/Hospital Course: walking with walker this morning. Voiding with condom cath appetite ok pain controlled feels that he is getting stronger Objective Vital Signs / I&O: Vital Signs 06/21/18 08:00 06/21/18 08:19 06/21/18 09:15 Temperature 99.2 F Pulse Rate 109 H Respiratory Rate 16 16 Blood Pressure 162/77 H Pulse Oximetry 95 06/21/18 11:00 06/21/18 12:00 06/21/18 15:00 Temperature 98.0 F 98.6 F Pulse Rate 87 63 Respiratory Rate 16 17 Blood Pressure 142/62 H Pulse Oximetry 97 91 L 06/21/18 16:00 06/21/18 18:17 06/21/18 19:00 Temperature 98 F Pulse Rate 88 Respiratory Rate 17 18 Blood Pressure 137/66 Pulse Oximetry 97 97 06/21/18 19:34 06/21/18 23:00 06/22/18 03:00 Temperature 98.7 F 97.8 F Pulse Rate 87 89 Respiratory Rate 20 20 Blood Pressure 140/69 119/74 Pulse Oximetry 98 94 L 94 L Intake & Output 06/21/18 06/22/18 06/22/18 18:59 06:59 18:59 Intake Total 480 / 480 480 / 480 Output Total 495 / 495 2700 / 2700 Balance -15 / -15 -2220 / -2220 Weight 94 kg Intake: Oral 480 / 480 480 / 480 Output: Urine 425 / 425 500 / 500 Estimated Blood Loss 2000 / 2000 Gastric Drainage 100 / 100 Nasogastric Tube 100 / 100 Chest Tube Drainage 70 / 70 100 / 100 Left 70 / 70 100 / 100 Other: # Voids 3 # Incontinent Voids 3 Date of Last Bowel Movement 06/19/18 06/22/18 # Bowel Movements 0 1 # Incontinent Bowel Movements 2 Exam: walking well CT in place no labored respirations still edematous B LE, improved Laboratory Results - last 24 hr 06/21/18 06/21/18 06/21/18 09:16 09:16 12:59 WBC 7.6 RBC 2.69 L Hgb 9.1 L Hct 26.1 L MCV 96.8 MCH 33.7 MCHC 34.8 RDW 21.1 H Plt Count 200 MPV 6.9 L PT 10.0 INR 1.0 APTT 25.1 26.9 Sodium Potassium Chloride Carbon Dioxide Anion Gap BUN Creatinine Estimated GFR Random Glucose Calcium Phosphorus Magnesium 06/22/18 06/22/18 04:10 04:10 WBC 6.6 RBC 2.70 L Hgb 9.0 L Hct 25.9 L MCV 96.0 MCH 33.4 MCHC 34.7 RDW 20.5 H Plt Count 224 MPV 6.9 L PT INR APTT Sodium 141 Potassium 3.4 L Chloride 100 Carbon Dioxide 32.2 H Anion Gap 9 BUN 17 Creatinine 0.83 Estimated GFR Greater than 89 Random Glucose 123 H Calcium 8.4 L Phosphorus 2.3 L Magnesium 1.9 Assessment and Plan - Assessment (1) Thoracoabdominal aortic aneurysm (TAAA) without rupture Code(s): I71.6 - Thoracoabdominal aortic aneurysm, without rupture Status: Acute - Plan POD#7 s/p TAAA and L renal artery bypass continues to improve 1. continue cardiac diet 2. started hep gtt yesterday and ordered coumadin to start tomorrow (POD#8) 3. CT out later today or tomorrow; CXR pending for today 4. OOB and PT - ambulate as tolerated 5. D/C planning Discharge Plannin-3 days to inpatient rehab
[2018-06-22 09:21] LABS: Hematocrit 27.8 % (39.0-51.0); Hemoglobin 9.6 gm/dL (13.0-17.0); Mean Corpuscular HGB Conc 34.6 % (32.0-36.0); Mean Corpuscular Hemoglobin 33.4 pg (27.0-34.0); Mean Corpuscular Volume 96.6 fL (80.0-100.0); Platelet Count 265 th/mm3 (150-450); Red Blood Count 2.88 mil/mm3 (4.50-5.90); Red Cell Distribution Width 20.5 % (11.6-17.2); White Blood Count 7.6 th/mm3 (4.0-11.0)
[2018-06-22] MEDS: Brimonidine 0.2% Opth Drops 5 ML Bottle EACH EYE SCH ×2 (09:25→21:36)
[2018-06-22] MEDS: Senna/Docusate Sodium 8.6/50 MG Tablet PO SCH ×2 (09:26→21:25)
[2018-06-22] MEDS: Famotidine 20 MG Tablet PO SCH ×2 (09:26→21:25)
[2018-06-22] MEDS: Amiodarone 200 MG Tablet PO SCH ×2 (09:27→21:25)
[2018-06-22 09:30] LABS: Activated Partial Thrombo Time 23.3 sec (24.3-30.1); Prothrombin Time 10.1 sec (9.8-11.6)
[2018-06-22] MEDS: Sodium Chloride 0.9% 2 ML Flush BID IV.FLUSH SCH ×2 (11:24→21:37)
--- NOTE | 2018-06-22 14:39 | XR ---
EXAM DATE: 06/22/2018 12:00 AM EDT AGE/SEX: 73 years / Male INDICATIONS: . Short of breath. CLINICAL DATA: This is the patient's subsequent encounter. Patient reports that signs and symptoms h ave been present for 3 days and indicates a pain score of 0/10. MEDICAL/SURGICAL HISTORY: Deep venous thrombosis. Carcinoma, anal. CAD Coronary artery stent. cardiac cath COMPARISON: [facility] [place] 1V SINGLE AP, 06/18/2018. . FINDINGS: PA and lateral views of the chest demonstrate left-sided chest tube. Tiny left apical pneumothorax. M inimal left basilar atelectasis. Right lung clear.. The cardiomediastinal contours are unremarkable. Osseous structures are intact. CONCLUSION: Left-sided chest tube and tiny left apical pneumothorax. Electronically signed by: Gregory Langston MD 06/22/2018 2:38 PM EDT
[2018-06-22] MEDS: Melatonin 5 MG Tablet PO SCH (21:25)
[2018-06-23 04:27] LABS: Hematocrit 25.2 % (39.0-51.0); Hemoglobin 8.7 gm/dL (13.0-17.0); Mean Corpuscular HGB Conc 34.7 % (32.0-36.0); Mean Corpuscular Hemoglobin 33.4 pg (27.0-34.0); Mean Corpuscular Volume 96.4 fL (80.0-100.0); Mean Platelet Volume 6.8 fL (7.0-11.0); Platelet Count 251 th/mm3 (150-450); Red Blood Count 2.62 mil/mm3 (4.50-5.90); Red Cell Distribution Width 20.4 % (11.6-17.2); White Blood Count 6.4 th/mm3 (4.0-11.0)
[2018-06-23 04:43] LABS: Calcium 8.1 mg/dL (8.5-10.1); Potassium 3.9 meq/L (3.5-5.1)
[2018-06-23] MEDS: Senna/Docusate Sodium 8.6/50 MG Tablet PO SCH ×2 (09:16→21:24)
[2018-06-23] MEDS: Brimonidine 0.2% Opth Drops 5 ML Bottle EACH EYE SCH ×2 (09:17→21:24)
[2018-06-23] MEDS: Famotidine 20 MG Tablet PO SCH ×2 (09:17→21:23)
[2018-06-23] MEDS: Amiodarone 200 MG Tablet PO SCH ×2 (09:17→21:23)
[2018-06-23] MEDS: Sodium Chloride 0.9% 2 ML Flush BID IV.FLUSH SCH ×2 (09:18→21:24)
[2018-06-23] MEDS: Heparin Drip 25,000 UNIT/250 ML BAG IV.CONT PRN (09:21)
--- NOTE | 2018-06-23 09:48 | XR ---
EXAM DATE: 06/23/2018 12:00 AM EDT AGE/SEX: 73 years / Male INDICATIONS: R/O pneumothorax. CLINICAL DATA: This is the patient's initial encounter. Patient reports that signs and symptoms have been present for 1 day and indicates a pain score of 0/10. MEDICAL/SURGICAL HISTORY: . Deep venous thrombosis. Carcinoma, anal. CAD Coronary artery stent. Cardiac cath . COMPARISON: [facility] – [place] CHEST 2V PA&LAT, 06/22/2018. . FINDINGS: Moderate bibasilar parenchymal changes evident. Small 1.6 cm left pneumothorax. The heart and pulmona ry vascularity are normal. The portion of the bony skeleton visualized is unremarkable. CONCLUSION: 1.6 cm left pneumothorax. Electronically signed by: Bear Ramos MD 06/23/2018 9:46 AM EDT
--- NOTE | 2018-06-23 10:59 | P.PNVS ---
Subjective Procedure: TAAA and LEFT renal artery bypass Subjective/Hospital Course: walking with walker this morning. tolerating diet pain controlled ambulating with a walker Objective Vital Signs / I&O: Vital Signs 06/22/18 11:00 06/22/18 13:00 06/22/18 15:00 Temperature 97.9 F 98.6 F Pulse Rate 94 H 84 Respiratory Rate 20 20 Blood Pressure 114/56 L Pulse Oximetry 93 L 98 06/22/18 17:00 06/22/18 19:00 06/22/18 19:58 Temperature 98.4 F Pulse Rate 83 Respiratory Rate 16 Blood Pressure 153/66 H Pulse Oximetry 93 L 94 L 96 06/22/18 20:00 06/22/18 21:00 06/22/18 22:00 Temperature Pulse Rate 86 82 90 Respiratory Rate Blood Pressure Pulse Oximetry 06/22/18 23:00 06/23/18 00:00 06/23/18 01:00 Temperature 97.3 F L Pulse Rate 90 86 74 Respiratory Rate 16 Blood Pressure 99/54 L Pulse Oximetry 95 95 06/23/18 02:00 06/23/18 03:00 06/23/18 03:55 Temperature 98.1 F Pulse Rate 106 H 90 Respiratory Rate 16 18 Blood Pressure 138/63 Pulse Oximetry 94 L 06/23/18 04:00 06/23/18 05:00 06/23/18 06:00 Temperature Pulse Rate 90 82 88 Respiratory Rate Blood Pressure Pulse Oximetry 95 06/23/18 07:54 Temperature Pulse Rate Respiratory Rate Blood Pressure Pulse Oximetry 93 L Intake & Output 06/22/18 06/23/18 06/23/18 18:59 06:59 18:59 Intake Total 820 / 820 545 / 545 Output Total 325 / 325 130 / 130 Balance 495 / 495 415 / 415 Weight 92 kg Intake: IV 65 / 65 Oral 820 / 820 480 / 480 Output: Urine 325 / 325 100 / 100 Chest Tube Drainage 30 / 30 Left 30 / 30 Other: # Voids 2 Date of Last Bowel Movement 06/19/18 # Bowel Movements 0 Exam: AAO x 3 Chest: CTAB, Chest tube to water seal Abdomen:Soft NT ND, wound CDI Pulses: + pedal signals BL Laboratory Results - last 24 hr 06/22/18 06/23/18 06/23/18 14:40 03:45 03:45 WBC 6.4 RBC 2.62 L Hgb 8.7 L Hct 25.2 L MCV 96.4 MCH 33.4 MCHC 34.7 RDW 20.4 H Plt Count 251 MPV 6.8 L APTT 25.9 Sodium 142 Potassium 3.9 Chloride 101 Carbon Dioxide 33.0 H Anion Gap 8 BUN 21 H Creatinine 0.89 Estimated GFR 83 L Random Glucose 110 H Calcium 8.1 L CXR: 1.6 cm left pneumothorax Assessment and Plan - Assessment (1) Thoracoabdominal aortic aneurysm (TAAA) without rupture Code(s): I71.6 - Thoracoabdominal aortic aneurysm, without rupture Status: Acute - Plan POD#8 s/p TAAA and L renal artery bypass continues to improve 1. continue cardiac diet 2. Started hep gtt yesterday and will hold of Coumadin until chest tube removed 3. CXR 06/22-06/23 shows a pneumothorax measuring 1.[address] chest tube back to suction and repeat the CXR in am 4. OOB and PT - ambulate as tolerated 5. D/C planning Discharge Plannin-3 days to inpatient rehab
[2018-06-23] MEDS: Melatonin 5 MG Tablet PO SCH (21:37)
[2018-06-24] MEDS: Heparin Drip 25,000 UNIT/250 ML BAG IV.CONT PRN ×2 (01:48→17:01)
[2018-06-24 04:29] LABS: Baso % (Auto) 0.4 % (0.0-2.0); Eos # (Auto) 0.3 th/mm3 (0.0-0.4); Eos % (Auto) 4.3 % (0.0-4.0); Hematocrit 25.1 % (39.0-51.0); Hemoglobin 8.4 gm/dL (13.0-17.0); Lymph # (Auto) 1.1 th/mm3 (1.0-4.8); Lymph % (Auto) 14.7 % (9.0-44.0); Mean Corpuscular HGB Conc 33.3 % (32.0-36.0); Mean Corpuscular Hemoglobin 32.2 pg (27.0-34.0); Mean Corpuscular Volume 96.7 fL (80.0-100.0); Mean Platelet Volume 6.5 fL (7.0-11.0); Mono % (Auto) 14.2 % (0.0-8.0); Neut # (Auto) 4.9 th/mm3 (1.8-7.7); Neut % (Auto) 66.4 % (16.0-70.0); Platelet Count 327 th/mm3 (150-450); Red Cell Distribution Width 20.6 % (11.6-17.2); White Blood Count 7.4 th/mm3 (4.0-11.0)
[2018-06-24 04:52] LABS: Calcium 8.5 mg/dL (8.5-10.1); Potassium 3.7 meq/L (3.5-5.1)
[2018-06-24 05:02] LABS: Ovalocytes 1+; Platelet Estimate Normal (Normal); Platelet Morphology Normal (Normal); Stomatocytes 1+
--- NOTE | 2018-06-24 07:53 | XR ---
EXAM DATE: 06/24/2018 7:00 AM EDT AGE/SEX: 73 years / Male INDICATIONS: Patient has history of pneumothorax. CLINICAL DATA: This is the patient's subsequent encounter. Patient reports that signs and symptoms h ave been present for 1 week and indicates a pain score of 4/10. MEDICAL/SURGICAL HISTORY: . Deep venous thrombosis. Carcinoma, anal. CAD Coronary artery stent. Cardiac cath . Coronary artery stent. cardiac cath COMPARISON: June 23, 2018 at 9:34 AM. FINDINGS: Single AP view of the chest demonstrates a small left apical pneumothorax measuring 1 cm craniocaudal ly decreased as compared to the prior exam which measured 1.6 cm. There is mild bilateral basilar ate lectasis versus small pleural effusion. Heart size is normal with mild tortuosity of the thoracic aor ta.. CONCLUSION: Small left apical pneumothorax, decreased in size from prior exam. Electronically signed by: Myrtle Ambrocio MD 06/24/2018 7:51 AM EDT
[2018-06-24] MEDS: Senna/Docusate Sodium 8.6/50 MG Tablet PO SCH ×2 (08:38→20:51)
[2018-06-24] MEDS: Brimonidine 0.2% Opth Drops 5 ML Bottle EACH EYE SCH ×2 (08:39→20:33)
[2018-06-24] MEDS: Famotidine 20 MG Tablet PO SCH ×2 (08:39→20:50)
[2018-06-24] MEDS: Amiodarone 200 MG Tablet PO SCH ×2 (08:39→20:34)
[2018-06-24] MEDS: Sodium Chloride 0.9% 2 ML Flush BID IV.FLUSH SCH ×2 (08:39→20:35)
--- NOTE | 2018-06-24 09:43 | P.PNVS ---
Subjective Post Op Day #: 9 Procedure: TAAA and LEFT renal artery bypass Subjective/Hospital Course: sitting in bed this morning. tolerating diet pain controlled ambulating with a walker Objective Vital Signs / I&O: Vital Signs 06/23/18 10:00 06/23/18 11:00 06/23/18 12:00 Temperature 97.9 F Pulse Rate 94 H 86 90 Respiratory Rate 18 Blood Pressure 108/54 L Pulse Oximetry 94 L 06/23/18 13:00 06/23/18 14:00 06/23/18 15:00 Temperature 97.9 F Pulse Rate 90 98 H 84 Respiratory Rate 18 Blood Pressure 154/70 H Pulse Oximetry 94 L 06/23/18 16:00 06/23/18 17:00 06/23/18 18:00 Temperature Pulse Rate 86 81 86 Respiratory Rate Blood Pressure Pulse Oximetry 06/23/18 19:00 06/23/18 20:00 06/23/18 21:00 Temperature 97.8 F Pulse Rate 91 H 86 104 H Respiratory Rate 16 Blood Pressure 123/77 Pulse Oximetry 95 06/23/18 22:00 06/23/18 23:00 06/24/18 00:00 Temperature 98.0 F Pulse Rate 80 77 86 Respiratory Rate 16 16 Blood Pressure 136/60 Pulse Oximetry 95 06/24/18 01:00 06/24/18 02:00 06/24/18 03:00 Temperature 98.1 F Pulse Rate 80 78 68 Respiratory Rate 16 Blood Pressure 114/73 Pulse Oximetry 94 L 06/24/18 04:00 06/24/18 05:00 06/24/18 05:54 Temperature Pulse Rate 76 76 76 Respiratory Rate 16 Blood Pressure Pulse Oximetry 06/24/18 07:00 06/24/18 08:00 06/24/18 08:09 Temperature 98.6 F Pulse Rate 74 84 80 Respiratory Rate 18 Blood Pressure 140/64 Pulse Oximetry 93 L 06/24/18 09:00 Temperature Pulse Rate 78 Respiratory Rate Blood Pressure Pulse Oximetry Intake & Output 06/23/18 06/24/18 06/24/18 18:59 06:59 18:59 Intake Total 490 / 490 Output Total 300 / 300 450 / 450 Balance -300 / -300 40 / 40 Weight 92.2 kg Intake: IV 250 / 250 Heparin/D5W 25,000 U/250 mL 25, 250 / 250 000 unit In 250 ml @ 1,700 UNITS/HR 17 mls/hr IV.CONT TITRATE PRN Rx#:[id number] Oral 240 / 240 Output: Urine 300 / 300 350 / 350 Chest Tube Drainage 100 / 100 Left 100 / 100 Other: # Incontinent Voids 1 Date of Last Bowel Movement 06/23/19 06/22/18 Exam: Abdomen soft nontender nondistended Chest clear to auscultation bilateral Chest tube to suction, no air leak. +2 bilateral lower extremity edema worse on the left than the right. Pulses: Multiphasic pedal signals bilateral Incisions: Incision is clean dry intact, no drainage Laboratory Results - last 24 hr 06/24/18 06/24/18 04:12 04:12 WBC 7.4 RBC 2.60 L Hgb 8.4 L Hct 25.1 L MCV 96.7 MCH 32.2 MCHC 33.3 RDW 20.6 H Plt Count 327 D MPV 6.5 L Prelim Diff (Auto) Slide review pending Neut % (Auto) 66.4 Lymph % (Auto) 14.7 [place] % (Auto) 14.2 H Eos % (Auto) 4.3 H Baso % (Auto) 0.4 Neut # (Auto) 4.9 Lymph # (Auto) 1.1 [place] # (Auto) 1.0 H Eos # (Auto) 0.3 Baso # (Auto) 0.0 WBC Differential . Diff Scan Auto diff confirmed Differential Comment . Platelet Estimate Normal Platelet Morphology Normal Ovalocytes 1+ H Stomatocytes 1+ H Sodium 138 Potassium 3.7 Chloride 99 Carbon Dioxide 35.0 H Anion Gap 4 L BUN 18 Creatinine 0.89 Estimated GFR 83 L Random Glucose 115 H Calcium 8.5 Chest x-ray reviewed, left pneumothorax decreased from 1.6-1.1 cm. Assessment and Plan - Assessment (1) Thoracoabdominal aortic aneurysm (TAAA) without rupture Code(s): I71.6 - Thoracoabdominal aortic aneurysm, without rupture Status: Acute - Plan POD#8 s/p TAAA and L renal artery bypass continues to improve 1. continue cardiac diet 2. Continue with heparin drip and will hold of Coumadin until chest tube removed 3. CXR 06/24 shows a pneumothorax decreased to 1.1 cm Continue with wall suction and repeat the CXR in am 4-hemoglobin trend [id number]. We will follow closely and repeat H&H in the morning 5-bilateral lower extremity swelling, no clinical evidence of acute DVT. Will apply compression stocking. 4. OOB and PT - ambulate as tolerated 5. D/C planning Discharge Plannin-3 days to inpatient rehab
[2018-06-24] MEDS: Melatonin 5 MG Tablet PO SCH (20:34)
[2018-06-25 04:10] LABS: Baso % (Auto) 0.5 % (0.0-2.0); Eos # (Auto) 0.3 th/mm3 (0.0-0.4); Eos % (Auto) 3.3 % (0.0-4.0); Hematocrit 25.2 % (39.0-51.0); Hemoglobin 8.7 gm/dL (13.0-17.0); Lymph # (Auto) 1.2 th/mm3 (1.0-4.8); Lymph % (Auto) 13.7 % (9.0-44.0); Mean Corpuscular HGB Conc 34.4 % (32.0-36.0); Mean Corpuscular Hemoglobin 32.9 pg (27.0-34.0); Mean Corpuscular Volume 95.6 fL (80.0-100.0); Mean Platelet Volume 6.3 fL (7.0-11.0); Mono % (Auto) 11.6 % (0.0-8.0); Neut % (Auto) 70.9 % (16.0-70.0); Platelet Count 342 th/mm3 (150-450); Red Blood Count 2.64 mil/mm3 (4.50-5.90); Red Cell Distribution Width 19.4 % (11.6-17.2); White Blood Count 8.4 th/mm3 (4.0-11.0)
[2018-06-25 04:45] LABS: Anion Gap 5 meq/L (5-15); Blood Urea Nitrogen 18 mg/dL (7-18); Calcium 8.6 mg/dL (8.5-10.1); Carbon Dioxide 34.3 meq/L (21.0-32.0); Chloride 100 meq/L (98-107); Glomerular Filtration Rate Greater Than 89 mL/min (>89); Glucose,Random 102 mg/dL (74-106); Potassium 3.6 meq/L (3.5-5.1); Sodium 139 meq/L (136-145)
[2018-06-25 05:12] LABS: Eosinophils 1 % (0-4); Lymphocytes 10 % (9-44); Monocytes 1 % (0-8)
[2018-06-25 05:13] LABS: Platelet Estimate Normal (Normal); Platelet Morphology Normal (Normal); Polychromasia 2.2 % (0.0-1.9); Toxic Granulation 1+
--- NOTE | 2018-06-25 08:49 | XR ---
EXAM DATE: 06/25/2018 7:00 AM EDT AGE/SEX: 73 years / Male INDICATIONS: Evaluate pneumothorax CLINICAL DATA: This is the patient's subsequent encounter. Patient reports that signs and symptoms h ave been present for 1 week and indicates a pain score of 0/10. MEDICAL/SURGICAL HISTORY: . Deep venous thrombosis. Carcinoma, anal. . CAD Coronary artery s tent. Cardiac cath . Coronary artery stent. Cardiac cath COMPARISON: [facility] – [place], CHEST 1V SINGLE AP, 06/24/2018. [facility] [place], CHEST 1V SINGLE AP, 06/15/2018. . FINDINGS: AP upright portable view of the chest demonstrates hypoinflation of the lungs with minimal left apica l pneumothorax now measuring 6 mm as compared to 1 cm on the prior exam. Persistent basilar atelectas is. Left basilar chest tube present. CONCLUSION: Interval decrease size of a left apical pneumothorax. Electronically signed by: Myrtle Ambrocio MD 06/25/2018 8:47 AM EDT
[2018-06-25] MEDS: Brimonidine 0.2% Opth Drops 5 ML Bottle EACH EYE SCH ×2 (09:48→21:00)
[2018-06-25] MEDS: Amiodarone 200 MG Tablet PO SCH ×2 (09:48→20:55)
[2018-06-25] MEDS: Famotidine 20 MG Tablet PO SCH ×2 (09:48→20:56)
[2018-06-25] MEDS: Sodium Chloride 0.9% 2 ML Flush BID IV.FLUSH SCH ×2 (09:48→21:00)
[2018-06-25] MEDS: Senna/Docusate Sodium 8.6/50 MG Tablet PO SCH ×2 (09:48→22:02)
--- NOTE | 2018-06-25 14:02 | P.PNVS ---
Subjective Post Op Day #: 10 Procedure: TAAA and LEFT renal artery bypass Subjective/Hospital Course: Sitting up in a chair Using incentive spirometer Tolerating p.o. diet with improved intake Ambulate with a walker Objective Vital Signs / I&O: Vital Signs 06/24/18 14:00 06/24/18 14:43 06/24/18 14:57 Temperature 98.2 F Pulse Rate 74 77 Respiratory Rate 18 Blood Pressure 137/63 Pulse Oximetry 93 L 90 L 06/24/18 14:58 06/24/18 15:00 06/24/18 16:00 Temperature Pulse Rate 79 100 H Respiratory Rate Blood Pressure Pulse Oximetry 93 L 06/24/18 17:00 06/24/18 18:00 06/24/18 19:00 Temperature 98.4 F Pulse Rate 82 80 84 Respiratory Rate 16 Blood Pressure 144/65 H Pulse Oximetry 92 L 06/24/18 20:00 06/24/18 21:00 06/24/18 21:32 Temperature Pulse Rate 71 70 69 Respiratory Rate Blood Pressure Pulse Oximetry 06/24/18 23:00 06/25/18 00:00 06/25/18 01:00 Temperature 98.2 F Pulse Rate 72 69 75 Respiratory Rate 16 Blood Pressure 111/55 L Pulse Oximetry 92 L 06/25/18 02:00 06/25/18 03:00 06/25/18 04:00 Temperature 98.8 F Pulse Rate 75 84 84 Respiratory Rate 16 Blood Pressure 158/70 H Pulse Oximetry 94 L 06/25/18 05:00 06/25/18 06:00 06/25/18 07:00 Temperature 98.4 F Pulse Rate 73 79 73 Respiratory Rate 17 Blood Pressure 157/70 H Pulse Oximetry 97 06/25/18 08:00 06/25/18 09:16 06/25/18 11:33 Temperature Pulse Rate 76 Respiratory Rate 17 Blood Pressure Pulse Oximetry 94 L 06/25/18 11:34 Temperature Pulse Rate Respiratory Rate 17 Blood Pressure Pulse Oximetry Intake & Output 06/24/18 06/25/18 06/25/18 18:59 06:59 18:59 Intake Total 1210 / 1210 240 / 240 Output Total 345 / 345 270 / 270 Balance 865 / 865 -30 / -30 Weight 90 kg Intake: IV 250 / 250 Heparin/D5W 25,000 U/250 mL 25, 250 / 250 000 unit In 250 ml @ 1,700 UNITS/HR 17 mls/hr IV.CONT TITRATE PRN Rx#:[id number] Oral 960 / 960 240 / 240 Output: Urine 275 / 275 250 / 250 Chest Tube Drainage 70 / 70 20 / 20 Left 70 / 70 20 / 20 Other: # Voids 3 # Incontinent Voids 2 2 Date of Last Bowel Movement 06/22/18 06/22/18 06/22/18 Exam: Abdomen soft nontender nondistended Left chest tube is clean dry intact, dressing change and will apply Vaseline gauze to the entrance site Laboratory Results - last 24 hr 06/24/18 06/25/18 06/25/18 19:23 03:54 03:54 WBC 8.4 RBC 2.64 L Hgb 8.7 L Hct 25.2 L MCV 95.6 MCH 32.9 MCHC 34.4 RDW 19.4 H Plt Count 342 MPV 6.3 L Prelim Diff (Auto) Slide review pending Neut % (Auto) 70.9 H Lymph % (Auto) 13.7 [place] % (Auto) 11.6 H Eos % (Auto) 3.3 Baso % (Auto) 0.5 Neut # (Auto) 6.0 Lymph # (Auto) 1.2 [place] # (Auto) 1.0 H Eos # (Auto) 0.3 Baso # (Auto) 0.0 WBC Differential Manual diff final Seg Neuts % (Manual) 84 H Band Neuts % (Manual) 4 Lymphocytes % (Manual) 10 Monocytes % (Manual) 1 Eosinophils % (Manual) 1 Abs Neuts (Manual) 7.4 Differential Comment . Toxic Granulation 1+ H Platelet Estimate Normal Platelet Morphology Normal Polychromasia 2.2 H APTT 49.7 H Sodium 139 Potassium 3.6 Chloride 100 Carbon Dioxide 34.3 H Anion Gap 5 BUN 18 Creatinine 0.76 Estimated GFR Greater than 89 Random Glucose 102 Calcium 8.6 06/25/18 03:54 WBC RBC Hgb Hct MCV MCH MCHC RDW Plt Count MPV Prelim Diff (Auto) Neut % (Auto) Lymph % (Auto) [place] % (Auto) Eos % (Auto) Baso % (Auto) Neut # (Auto) Lymph # (Auto) [place] # (Auto) Eos # (Auto) Baso # (Auto) WBC Differential Seg Neuts % (Manual) Band Neuts % (Manual) Lymphocytes % (Manual) Monocytes % (Manual) Eosinophils % (Manual) Abs Neuts (Manual) Differential Comment Toxic Granulation Platelet Estimate Platelet Morphology Polychromasia APTT 53.9 H Sodium Potassium Chloride Carbon Dioxide Anion Gap BUN Creatinine Estimated GFR Random Glucose Calcium Chest x-ray was reviewed, decreased left pneumothorax. Assessment and Plan - Assessment (1) Thoracoabdominal aortic aneurysm (TAAA) without rupture Code(s): I71.6 - Thoracoabdominal aortic aneurysm, without rupture Status: Acute - Plan POD#8 s/p TAAA and L renal artery bypass continues to improve 1. continue cardiac diet 2. Continue with heparin drip and will hold of Coumadin until chest tube removed 3. CXR shows a pneumothorax decreased 0.6 cm. Continue with wall suction. 4-hemoglobin stable at 8.7 5-bilateral lower extremity swelling, improved with compression stocking 4. OOB and PT - ambulate as tolerated 5. D/C planning Discharge Plannin-3 days to inpatient rehab
[2018-06-25 17:12] LABS: INR 1.1 Ratio
[2018-06-25] MEDS: Melatonin 5 MG Tablet PO SCH (20:55)
[2018-06-26] MEDS: Heparin Drip 25,000 UNIT/250 ML BAG IV.CONT PRN ×2 (02:22→17:25)
[2018-06-26 05:51] LABS: Baso % (Auto) 0.4 % (0.0-2.0); Eos # (Auto) 0.2 th/mm3 (0.0-0.4); Eos % (Auto) 2.3 % (0.0-4.0); Hematocrit 25.3 % (39.0-51.0); Hemoglobin 8.6 gm/dL (13.0-17.0); Lymph # (Auto) 1.1 th/mm3 (1.0-4.8); Lymph % (Auto) 12.4 % (9.0-44.0); Mean Corpuscular HGB Conc 34.1 % (32.0-36.0); Mean Corpuscular Hemoglobin 32.9 pg (27.0-34.0); Mean Corpuscular Volume 96.5 fL (80.0-100.0); Mean Platelet Volume 6.4 fL (7.0-11.0); Mono # (Auto) 0.9 th/mm3 (0.0-0.9); Mono % (Auto) 10.4 % (0.0-8.0); Neut # (Auto) 6.6 th/mm3 (1.8-7.7); Neut % (Auto) 74.5 % (16.0-70.0); Platelet Count 378 th/mm3 (150-450); Red Blood Count 2.62 mil/mm3 (4.50-5.90); Red Cell Distribution Width 19.3 % (11.6-17.2); White Blood Count 8.8 th/mm3 (4.0-11.0)
--- NOTE | 2018-06-26 06:02 | XR ---
EXAM DATE: 06/26/2018 12:00 AM EDT AGE/SEX: 73 years / Male INDICATIONS: Shortness of breath, possible pulmonary disease. CLINICAL DATA: This is the patient's subsequent encounter. Patient reports that signs and symptoms h ave been present for 1 week and indicates a pain score of 1/10. MEDICAL/SURGICAL HISTORY: Deep venous thrombosis. Carcinoma, anal. CAD. Coronary artery stent . [place] [facility] [place]. . FINDINGS: The cardiac silhouette is enlarged in transverse diameter. There is resolving pulmonary vascular cricket estion. There is subsegmental atelectasis in the both bases. Small bilateral pleural effusions are id entified. There is no evidence of pneumothorax. CONCLUSION: There is no evidence of pneumothorax. Resolving pulmonary edema Electronically signed by: Mike Pope MD 06/26/2018 6:00 AM EDT
[2018-06-26 06:19] LABS: Blood Urea Nitrogen 17 mg/dL (7-18); Calcium 8.2 mg/dL (8.5-10.1); Chloride 98 meq/L (98-107); Glomerular Filtration Rate Greater Than 89 mL/min (>89); Glucose,Random 106 mg/dL (74-106); Potassium 3.5 meq/L (3.5-5.1); Sodium 139 meq/L (136-145)
[2018-06-26 06:21] LABS: Anion Gap 9 meq/L (5-15); Carbon Dioxide 31.6 meq/L (21.0-32.0)
[2018-06-26 08:17] LABS: Toxic Granulation 2+
[2018-06-26 08:18] LABS: Platelet Estimate Normal (Normal); Platelet Morphology Normal (Normal)
[2018-06-26] MEDS: Famotidine 20 MG Tablet PO SCH ×2 (09:03→21:47)
[2018-06-26] MEDS: Amiodarone 200 MG Tablet PO SCH ×2 (09:03→21:46)
[2018-06-26] MEDS: Senna/Docusate Sodium 8.6/50 MG Tablet PO SCH ×2 (09:03→21:47)
[2018-06-26] MEDS: Sodium Chloride 0.9% 2 ML Flush BID IV.FLUSH SCH ×2 (09:04→21:47)
[2018-06-26] MEDS: Brimonidine 0.2% Opth Drops 5 ML Bottle EACH EYE SCH ×2 (09:04→21:46)
--- NOTE | 2018-06-26 11:05 | P.PNVS ---
Subjective Post Op Day #: 11 Procedure: TAAA and LEFT renal artery bypass Subjective/Hospital Course: looks good continues to get stronger + BM good appetite Objective Vital Signs / I&O: Vital Signs 06/25/18 11:33 06/25/18 11:34 06/25/18 12:00 Temperature Pulse Rate 90 Respiratory Rate 17 17 Blood Pressure Pulse Oximetry 06/25/18 13:00 06/25/18 14:00 06/25/18 15:00 Temperature 98.7 F Pulse Rate 90 85 73 Respiratory Rate 17 Blood Pressure 104/51 L Pulse Oximetry 96 06/25/18 16:00 06/25/18 17:00 06/25/18 17:18 Temperature Pulse Rate 93 H 92 H Respiratory Rate Blood Pressure Pulse Oximetry 92 L 06/25/18 18:00 06/25/18 19:00 06/25/18 20:00 Temperature 98.5 F Pulse Rate 87 80 72 Respiratory Rate 16 Blood Pressure 151/63 H Pulse Oximetry 94 L 06/25/18 21:00 06/25/18 22:00 06/25/18 23:00 Temperature 98.4 F Pulse Rate 73 77 77 Respiratory Rate 16 Blood Pressure 134/62 Pulse Oximetry 94 L 06/26/18 00:00 06/26/18 01:00 06/26/18 02:00 Temperature Pulse Rate 70 87 60 Respiratory Rate Blood Pressure Pulse Oximetry 06/26/18 02:30 06/26/18 03:00 06/26/18 04:00 Temperature 98.4 F Pulse Rate 80 77 82 Respiratory Rate 16 Blood Pressure 131/59 L Pulse Oximetry 96 96 06/26/18 05:00 06/26/18 05:53 06/26/18 07:00 Temperature 98.7 F Pulse Rate 76 75 72 Respiratory Rate 17 Blood Pressure 133/63 Pulse Oximetry 92 L 06/26/18 08:00 06/26/18 09:00 06/26/18 10:00 Temperature Pulse Rate 69 74 74 Respiratory Rate Blood Pressure Pulse Oximetry Intake & Output 06/25/18 06/26/18 06/26/18 18:59 06:59 18:59 Intake Total 850 / 850 480 / 480 Output Total 1000 / 1000 470 / 470 Balance -150 / -150 10 / 10 Weight 90.5 kg Intake: IV 250 / 250 Heparin/D5W 25,000 U/250 mL 25, 250 / 250 000 unit In 250 ml @ 1,700 UNITS/HR 17 mls/hr IV.CONT TITRATE PRN Rx#:[id number] Oral 600 / 600 480 / 480 Output: Urine 900 / 900 450 / 450 Chest Tube Drainage 100 / 100 20 / 20 Left 100 / 100 20 / 20 Other: # Voids 5 Date of Last Bowel Movement 06/25/18 06/22/18 06/22/18 Exam: sitting in chair incision ok Laboratory Results - last 24 hr 06/25/18 06/26/18 06/26/18 16:50 05:16 05:16 WBC 8.8 RBC 2.62 L Hgb 8.6 L Hct 25.3 L MCV 96.5 MCH 32.9 MCHC 34.1 RDW 19.3 H Plt Count 378 MPV 6.4 L Prelim Diff (Auto) Slide review pending Neut % (Auto) 74.5 H Lymph % (Auto) 12.4 [place] % (Auto) 10.4 H Eos % (Auto) 2.3 Baso % (Auto) 0.4 Neut # (Auto) 6.6 Lymph # (Auto) 1.1 [place] # (Auto) 0.9 Eos # (Auto) 0.2 Baso # (Auto) 0.0 WBC Differential . Diff Scan Auto diff confirmed Differential Comment . Toxic Granulation 2+ H Platelet Estimate Normal Platelet Morphology Normal PT 11.0 INR 1.1 APTT Sodium 139 Potassium 3.5 Chloride 98 Carbon Dioxide 31.6 Anion Gap 9 BUN 17 Creatinine 0.82 Estimated GFR Greater than 89 Random Glucose 106 Calcium 8.2 L 06/26/18 05:16 WBC RBC Hgb Hct MCV MCH MCHC RDW Plt Count MPV Prelim Diff (Auto) Neut % (Auto) Lymph % (Auto) [place] % (Auto) Eos % (Auto) Baso % (Auto) Neut # (Auto) Lymph # (Auto) [place] # (Auto) Eos # (Auto) Baso # (Auto) WBC Differential Diff Scan Differential Comment Toxic Granulation Platelet Estimate Platelet Morphology PT INR APTT 49.2 H Sodium Potassium Chloride Carbon Dioxide Anion Gap BUN Creatinine Estimated GFR Random Glucose Calcium Assessment and Plan - Assessment (1) Thoracoabdominal aortic aneurysm (TAAA) without rupture Code(s): I71.6 - Thoracoabdominal aortic aneurysm, without rupture Status: Acute - Plan POD#11 s/p TAAA and L renal artery bypass continues to improve CXR today without PTX 1. continue cardiac diet 2. Continue with heparin drip and will hold of Coumadin until chest tube removed 3. CT to H2O seal and recheck tomorrow; likely CT out tomorrow 4. continue OOB and PT 5. D/C planning Discharge Planning: potentially Tu afternoon after CT out
[2018-06-26] MEDS: Melatonin 5 MG Tablet PO SCH (21:46)
[2018-06-27] MEDS: Heparin Drip 25,000 UNIT/250 ML BAG IV.CONT PRN (09:26)
[2018-06-27] MEDS: Brimonidine 0.2% Opth Drops 5 ML Bottle EACH EYE SCH ×2 (09:42→21:21)
[2018-06-27] MEDS: Amiodarone 200 MG Tablet PO SCH ×2 (09:43→21:20)
[2018-06-27] MEDS: Senna/Docusate Sodium 8.6/50 MG Tablet PO SCH ×2 (09:43→21:21)
[2018-06-27] MEDS: Famotidine 20 MG Tablet PO SCH ×2 (09:43→21:20)
[2018-06-27] MEDS: Sodium Chloride 0.9% 2 ML Flush BID IV.FLUSH SCH ×2 (09:44→21:21)
--- NOTE | 2018-06-27 09:49 | XR ---
EXAM DATE: 06/27/2018 8:58 AM EDT AGE/SEX: 73 years / Male INDICATIONS: Follow up chest tube and pneumothorax. CLINICAL DATA: This is the patient's initial encounter. Patient reports that signs and symptoms have been present for 4 - 6 days and indicates a pain score of 0/10. MEDICAL/SURGICAL HISTORY: . DVT, anal carcinoma, CAD . coronary artery stent, cardiac cath. COMPARISON: [facility] [place], CHEST 1V SINGLE AP, 06/25/2018. . FINDINGS: Stable left-sided chest tube in place. No significant pneumothorax. Persistent platelike airspace dis ease at the left lung base. Small right pleural effusion. Cardiomediastinal contours are within sukumar l limits. Remainder of the exam is unchanged. CONCLUSION: 1. Stable left-sided chest tube without significant pneumothorax. 2. Persistent left basilar platelike airspace disease, presumably atelectasis. 3. Trace right pleural effusion. Electronically signed by: Maximino Garcia MD 06/27/2018 9:47 AM EDT
--- NOTE | 2018-06-27 10:29 | P.PNVS ---
Subjective Post Op Day #: 12 Procedure: TAAA and LEFT renal artery bypass Subjective/Hospital Course: 73/M S/P TAAA Pt in good spirits this am, at the BS Pt continues to looks good and is getting stronger Pt w/o complaints this am Objective Vital Signs / I&O: Vital Signs 06/26/18 10:00 06/26/18 11:00 06/26/18 12:00 Temperature 98.3 F Pulse Rate 74 82 82 Respiratory Rate 17 Blood Pressure 129/60 Pulse Oximetry 95 06/26/18 13:00 06/26/18 15:00 06/26/18 16:00 Temperature 98.5 F Pulse Rate 82 74 70 Respiratory Rate 19 Blood Pressure 106/60 Pulse Oximetry 94 L 06/26/18 17:00 06/26/18 18:00 06/26/18 18:27 Temperature Pulse Rate 72 77 Respiratory Rate 17 Blood Pressure Pulse Oximetry 06/26/18 19:00 06/26/18 19:43 06/26/18 20:00 Temperature 98.0 F Pulse Rate 72 68 Respiratory Rate 16 Blood Pressure 158/72 H Pulse Oximetry 94 L 94 L 06/26/18 21:00 06/26/18 22:00 06/26/18 23:00 Temperature 98.0 F Pulse Rate 74 88 70 Respiratory Rate 19 Blood Pressure 147/66 H Pulse Oximetry 95 06/27/18 00:00 06/27/18 01:00 06/27/18 02:00 Temperature Pulse Rate 68 68 72 Respiratory Rate Blood Pressure Pulse Oximetry 06/27/18 02:07 06/27/18 03:00 06/27/18 04:00 Temperature 98.1 F Pulse Rate 66 90 Respiratory Rate 16 19 Blood Pressure 122/59 L Pulse Oximetry 96 06/27/18 05:00 06/27/18 06:00 06/27/18 06:48 Temperature Pulse Rate 66 68 Respiratory Rate 16 Blood Pressure Pulse Oximetry 06/27/18 07:00 06/27/18 08:03 06/27/18 08:59 Temperature 98.6 F Pulse Rate 70 Respiratory Rate 16 Blood Pressure 159/73 H Pulse Oximetry 91 L 91 L 95 Intake & Output 06/26/18 06/27/18 06/27/18 18:59 06:59 18:59 Intake Total 590 / 590 680 / 680 224 / 224 Output Total 850 / 850 950 / 950 Balance -260 / -260 -270 / -270 224 / 224 Weight 90 kg Intake: IV 250 / 250 224 / 224 Heparin/D5W 25,000 U/250 mL 25, 250 / 250 224 / 224 000 unit In 250 ml @ 1,700 UNITS/HR 17 mls/hr IV.CONT TITRATE PRN Rx#:[id number] Oral 340 / 340 680 / 680 Output: Urine 800 / 800 950 / 950 Chest Tube Drainage 50 / 50 Left 50 / 50 Other: Date of Last Bowel Movement 06/22/18 06/26/18 06/26/18 Exam: PT A&Ox3, speech clear Incision intact CT in place LE warm w/ motor intact Pt w/o abdominal/back pain Laboratory Results - last 24 hr 06/27/18 06/27/18 03:56 07:38 APTT 66.0 H D POC Glucose 112 H Assessment and Plan - Assessment (1) Thoracoabdominal aortic aneurysm (TAAA) without rupture Code(s): I71.6 - Thoracoabdominal aortic aneurysm, without rupture Status: Acute - Plan POD#12 s/p TAAA and L renal artery bypass Pt continues to improve CXR today without PTX CT removed- pt tolerated well Plan CXR ordered- S/P CT removal Hold Coumadin until tomorrow 06/28/18 Continue PT/OOB Continue cardiac diet D/C planning to Lars Clemens NP [facility] [phone] Discharge Plannin-2 days
[2018-06-27] MEDS ORDERED: Mineral Oil Enema 118 ML Bottle RECTAL PRN (10:42)
--- NOTE | 2018-06-27 12:34 | XR ---
EXAM DATE: 06/27/2018 10:35 AM EDT AGE/SEX: 73 years / Male INDICATIONS: S/p chest tube removal CLINICAL DATA: This is the patient's initial encounter. Patient reports that signs and symptoms have been present for 4 - 6 days and indicates a pain score of 0/10. MEDICAL/SURGICAL HISTORY: Carcinoma, anal. Coronary artery stent. AAA repair COMPARISON: [facility], CHEST 1V SINGLE AP, 06/27/2018. . FINDINGS: Interval removal of left thoracostomy tube. 2 cm left apical pneumothorax. Persistent mild bibasilar atelectasis and minimal effusion. Visualized cardiac contours are unchanged. CONCLUSION: Left thoracostomy tube removal with small left apical pneumothorax. Electronically signed by: Ty Mary MD 06/27/2018 11:58 AM EDT
[2018-06-27] MEDS: Melatonin 5 MG Tablet PO SCH (21:20)
[2018-06-28] MEDS: Heparin Drip 25,000 UNIT/250 ML BAG IV.CONT PRN (01:03)
--- NOTE | 2018-06-28 07:56 | P.PNVS ---
Subjective Post Op Day #: 13 Procedure: TAAA and LEFT renal artery bypass Subjective/Hospital Course: looks great CT out yesterday and small PTX post-op. No respiratory distress and otherwise looks amazing. voiding, ramona po, getting stronger. Objective Vital Signs / I&O: Vital Signs 06/27/18 08:00 06/27/18 08:03 06/27/18 08:59 Temperature Pulse Rate 74 Respiratory Rate Blood Pressure Pulse Oximetry 91 L 95 06/27/18 09:00 06/27/18 10:00 06/27/18 11:00 Temperature 98.3 F Pulse Rate 88 96 H 70 Respiratory Rate 15 Blood Pressure 104/50 L Pulse Oximetry 90 L 06/27/18 12:00 06/27/18 13:00 06/27/18 14:00 Temperature Pulse Rate 80 96 H 78 Respiratory Rate Blood Pressure Pulse Oximetry 06/27/18 15:00 06/27/18 15:11 06/27/18 16:00 Temperature 98.0 F Pulse Rate 84 76 78 Respiratory Rate 15 Blood Pressure 114/53 L Pulse Oximetry 94 L 06/27/18 17:00 06/27/18 17:47 06/27/18 18:00 Temperature Pulse Rate 70 76 Respiratory Rate Blood Pressure Pulse Oximetry 94 L 06/27/18 19:00 06/27/18 20:00 06/27/18 21:00 Temperature 98.3 F Pulse Rate 72 74 78 Respiratory Rate 16 Blood Pressure 152/64 H Pulse Oximetry 91 L 06/27/18 22:00 06/27/18 23:00 06/28/18 00:00 Temperature 98.3 F Pulse Rate 92 H 71 68 Respiratory Rate 16 Blood Pressure 142/63 H Pulse Oximetry 93 L 06/28/18 01:00 06/28/18 02:00 06/28/18 03:00 Temperature 98.2 F Pulse Rate 72 42 L 72 Respiratory Rate 16 Blood Pressure 130/60 Pulse Oximetry 92 L 06/28/18 03:06 06/28/18 04:00 06/28/18 05:00 Temperature Pulse Rate 68 74 Respiratory Rate 16 Blood Pressure Pulse Oximetry 06/28/18 06:00 06/28/18 06:52 Temperature Pulse Rate 72 Respiratory Rate 16 Blood Pressure Pulse Oximetry Intake & Output 10/16/18 10/17/18 10/17/18 18:59 06:59 18:59 Intake Total 1224 / 1224 680 / 680 Output Total 250 / 250 650 / 650 Balance 974 / 974 30 / 30 Weight 89 kg Intake: IV 224 / 224 200 / 200 Heparin/D5W 25,000 U/250 mL 25, 224 / 224 200 / 200 000 unit In 250 ml @ 1,700 UNITS/HR 17 mls/hr IV.CONT TITRATE PRN Rx#:[id number] Oral 1000 / 1000 480 / 480 Output: Urine 250 / 250 650 / 650 Other: # Incontinent Voids 4 Date of Last Bowel Movement 06/26/18 06/26/18 Exam: no distress incision c/d/i; abd slightly full but nontender. Laboratory Results - last 24 hr 06/28/18 04:16 APTT 54.4 H Assessment and Plan - Assessment (1) Thoracoabdominal aortic aneurysm (TAAA) without rupture Code(s): I71.6 - Thoracoabdominal aortic aneurysm, without rupture Status: Acute - Plan POD#13 s/p TAAA and L renal artery bypass CT out and small PTX clinically looks great 1. CXR today 2. If CXR ok, will start therapeutic lovenox and coumadin 3. Clear to go to [place] today if CXR ok Discharge Planning: today
--- NOTE | 2018-06-28 08:50 | XR ---
EXAM DATE: 06/28/2018 7:00 AM EDT AGE/SEX: 73 years / Male INDICATIONS: Post chest tube removal. CLINICAL DATA: This is the patient's subsequent encounter. Patient reports that signs and symptoms h ave been present for 3 days and indicates a pain score of 0/10. MEDICAL/SURGICAL HISTORY: Carcinoma, anal. Coronary artery stent. AAA repair. [place] [facility] [place]. . FINDINGS: There has been interval decrease in left apical pneumothorax with about 15-16 mm separation of apical pleural layers on the current study. Mild persistent bibasilar parenchymal opacity. Cardiac contours are unchanged. Slight blunting of the costophrenic angles. CONCLUSION: Decreasing left apical pneumothorax. Electronically signed by: Ty Mary MD 06/28/2018 7:58 AM EDT
--- NOTE | 2018-06-28 08:53 | P.DS ---
Discharge Summary - Admission Date 06/14/18 15:12 - Admission Diagnosis (1) Thoracoabdominal aortic aneurysm (TAAA) without rupture - Discharge Diagnosis (1) Thoracoabdominal aortic aneurysm (TAAA) without rupture Status: Acute - Summary Brief History from admission: 73 yo male with TAAA, adm for coumadin reversal (lupus anticoag) in anticipation of TAAA tomorrow (). No abdominal or back pain. TAAA 6 cm, up from 4.7 <1y ago. Procedure: TAAA and LEFT renal artery bypass Significant Findings: Abnormal Lab Results 06/28/18 04:16 APTT 54.4 H Hospital Course: The patient underwent TAAA with obligate supra SMA cross clamping. He did very well during the procedure. Post-operatively, he had expected fluid shifts and required several liters of IVF boluses, then PRBC. He developed atrial fibrillation controlled with mediations, then transitioned to oral amiodarone and converted to SR. On POD#4, he started mobilizing fluid and we actively diuresed him. The remainder of his hospital course was uneventful except for a small post-chest tube PTX. At the time of discharge, he was tolerating a diet, ambulating, voiding and his pain was controlled with po meds. We will transition his anticoagulation to therapeutic lovenox and his home coumadin. - Discharge Instructions Any questions or concerns: Call [facility] at [facility] [phone] Discharge Plan - Discharge Disposition Patient Disposition: 62 Rehab Inpatient - Physicians Team Primary Care Provider: UNKNOWN, Attending Provider: Doroteo Goss Other Providers: Dane Sam MD - Rxs /Orders / Referrals /Forms Prescriptions: No Action alfuzosin 10 mg Tablet Extended Release 24 Hr 10 mg PO HS aspirin 81 mg Tablet,Chewable 81 mg PO DAILY atorvastatin [Lipitor] 40 mg Tablet 40 mg PO DAILY brimonidine 0.2 % Drops 1 drp OPHTHALMIC (EYE) BID cyanocobalamin-cobamamide [B12] 5,000-100 mcg Lozenge 2,500 mcg Sublingual DAILY fluticasone [Flonase Allergy Relief] 50 mcg/actuation [place],Suspension 50 mcg Intranasal PRN (Reason: sinus) lisinopril 20 mg Tablet 20 mg PO DAILY oxybutynin chloride 10 mg Tablet Extended Release 24hr 10 mg PO HS potassium citrate 5 mEq (540 mg) Tablet Extended Release 540 mg PO BID warfarin 7.5 mg Tablet 7.5 mg PO EVERY OTHER DAY warfarin 5 mg Tablet See Label Instructions .ROUTE .COMPLEX Referrals: UNKNOWN, [Primary Care Provider] - See Instructions
[2018-06-28] MEDS: Amiodarone 200 MG Tablet PO SCH (09:52)
[2018-06-28] MEDS: Famotidine 20 MG Tablet PO SCH (09:52)
[2018-06-28] MEDS: Senna/Docusate Sodium 8.6/50 MG Tablet PO SCH (09:53)
[2018-06-28] MEDS: Sodium Chloride 0.9% 2 ML Flush BID IV.FLUSH SCH (09:54)
[2018-06-28] MEDS: Brimonidine 0.2% Opth Drops 5 ML Bottle EACH EYE SCH (09:54)
[2018-06-28] MEDS ORDERED: Enoxaparin Inj 80 MG/0.8 ML Syringe SQ SCH (10:00)
== END 2018-06-28 14:00 ==
LOC: HCPC 15:12 → HCVI 06-15 14:27 → HCPC 06-21 12:29
PROVIDERS: ADMIT Surgery; ATTEND Surgery